=== PATIENT | female | born 1955 | race Caucasian/White ===

== ENCOUNTER 2018-06-23 14:13 | Emergency (ER) | payer BC ==
--- OUTSIDE RECORDS SUMMARY | 2018-06-23 14:19 | XMS REPORT | Continuity of Care Document ---
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 Melba Corrales MD Primary Care Physician Unavailable Payers Date Identification Numbers Payment Provider Subscriber Onset: 2018 Policy Number: [id number] [facility] Steffany Cruz Group Number: [id number] [address] Group Name: [id number] [place] [address] PayID: [id number] Effective: 2007 Policy Number: [id number] [facility] Steffany Cruz PayID: [id number] [address] [address] [place] [address] Advance Directives Description No Information Available Problems Active Problems Provider Date Chronic hepatitis C Angela Hsieh M.D. Onset: 12/08/2014 Refractory migraine without aura Angela Hsieh M.D. Onset: 12/08/2014 Tobacco user Angela Hsieh M.D. Onset: 12/08/2014 Wrist joint pain Melba Corrales MD Onset: 02/03/2015 Fibromyalgia Melba Corrales MD Onset: 02/03/2015 Sciatica Melba Corrales MD Onset: 05/03/2015 Hyperlipidemia Melba Corrales MD Onset: 04/14/2017 Shoulder joint pain Brennon Gooden M.D. Onset: 2017 Adhesive capsulitis of shoulder Brennon Gooden M.D. Onset: 2017 Acute upper respiratory infection, unspecified Melba Corrales MD Onset: 03/28 Eruption Melba Corrales MD Onset: 05/12/2017 Lesion of ulnar nerve Brennon Godoen M.D. Onset: 05/22/2017 Arthralgia of the upper arm Sandy Tapia MD Onset: 06/09/2017 Joint pain in right hand Sandy Tapia MD Onset: 06/09/2017 Joint pain in left hand Sandy Tapia MD Onset: 06/09/2017 Skin sensation disturbance Sandy Tapia MD Onset: 06/09/2017 Unspecified injury of muscle(s) and tendon(s) of Wendy Hung MD Onset: the rotator cuff of right shoulder, subsequent encounter Crushing injury of wrist Rowena Crouch PA Onset: 06/19/2018 Family History Date Family Member(s) Observation Comments Father Diabetes Father due to Diabetes () Father due to Heart Disease () Father due to Kidney Disease () Mother ALS Mother due to ALS () Social History Type Date Description Comments Sex Unknown Marital Status Patient is but has had a boyfriend for over 6 yrs Lives With Alone Diet Patient follows no dietary restrictions Occupation Currently Working [employer] [place] 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 Status Currently Working Hand Dominance Right-handed Tobacco Use Start: Unknown currently smokes 1/2 Pack Daily Tobacco Use Start: Unknown In process of trying to quit ETOH Use Denies alcohol use Tobacco Use Start: Unknown Patient is a current smoker, smokes every day Recreational Drug Use Former Drug User Tobacco Use Start: Unknown Pt is in the process of trying to quit Smoking Status Reviewed: 06/19/18 Pt is in the process of trying to quit Allergies, Adverse Reactions, Alerts Description No Known Drug Allergies Medications Active Medications SIG Qnty Indications Ordering Provider Date Vitamin D3 1 by mouth every 90caps Melba Corrales MD 06/16/2018 2000Unit day Capsules Baclofen 1 tab by mouth 60tabs Gagen, 03/23/2018 10mg Tablets three times a day Jessica MS, for neck, back BIOLOGICAL SCIENCE TECHNICIAN-C, CNM spasm Gabapentin 1 capsule three 90caps M25.519 Gagen, 03/23/2018 400mg times a day Jessica, MS, Capsules BIOLOGICAL SCIENCE TECHNICIAN-C, CNM Ibuprofen 1 tab once a day 30tabs Melba Corrales MD 04/30/2015 400mg Tablets as needed as for pain Restasis 1gtt. twice a day Unknown 0.05% Emulsion each eye Monat S3 Supplement 1 cap by mouth Unknown every day Capsules History Medications Vitamin D take one capsule 12caps F41.1 Gagen, 12/01/2017 - (Ergocalciferol) once a week MS Jessica, 06/16/2018 BIOLOGICAL SCIENCE TECHNICIAN-C, CNM [id number] Capsules Citalopram 1 tab by mouth 30tabs F32.1 Gagen, 10/31/2017 - Hydrobromide every day MS Jessica, 02/10/2018 10mg Tablets MICHAEL-LAVERN Walters Buspirone HCL take one twice a 60tabs F32.1 Gagen, 10/31/2017 - 7.5mg day MS Jessica, 02/10/2018 Tablets BIOLOGICAL SCIENCE TECHNICIAN-CLAVERN Baclofen 1 tab by mouth 60tabs Brennon Gooden, 2017 - 10mg Tablets three times a M.D. 10/13/2017 day spasm Sudafed Nasal 1 tab by mouth 30tabs Melba Corrales MD 03/28/2017 - Decongestant Maximum twice a day as 05/12/2017 Strength needed for 30mg Tablets congestion Amoxicillin/Clavulanat 1 tab by mouth 20tabs Melba Corrales MD 2017 - e Potassium q12hrs for 10 04/14/2017 875-125mg days Tablets Amoxicillin/Clavulanat 1 tab by mouth 14tabs Melba Corrales MD 2016 - e Potassium q12hrs for 7 Unknown 875-125mg days Tablets Tessalon Perles 1 tab by mouth 30caps J06.9 Melba Corrales MD 05/22/2016 - 100mg every 8 hours as 05/28/2016 Capsules needed Ventolin HFA 1-2 puffs every 8gm Melba oCrrales MD 05/22/2016 - 108(90Base) 4-6 hours as 11/20/2017 mcg/Act Aerosol needed for cough and shortness of breath [facility] Mucus Extended 1 tab by mouth 30tabs J06.9 Melba Corrales MD 2016 - Release twice a day 05/28/2016 600mg Tablets ER 12HR Azithromycin take 2 tabs on 6tabs Melba Corrales MD 05/22/2016 - 250mg day 1 and take 05/28/2016 Tablets one tab days 2-5 Fish Oil Burp-Less every day Melba Corrales MD 01/22/2016 - 1200mg 10/04/2016 Capsules Ventolin HFA 1-2 puffs every 8gm Melba Corrales MD 12/07/2015 - 108(90Base) 4-6 hours as 01/22/2016 mcg/Act Aerosol needed for cough and shortness of breath Anexsia Every 4 To 6 HRS 15tabs Unknown 04/30/2015 - 5-325mg Tablets 07/12/2015 Cyclobenzaprine HCL 3 times a day as 90tabs Melba Corrales MD 04/30/2015 - 10mg needed as needed 2017 Tablets muscle spasms Meloxicam 1 by mouth every 30tabs Brennon Gooden, 11/29/2014 - 15mg Tablets day c food M.D. 05/03/2015 [facility] Mucus Extended 1 tab by mouth 30tabs J06.9 Melba Corrales MD 2014 - Release twice a day 11/29/2014 600mg Tablets ER 12HR Ventolin HFA 1 puff every 6 1units J06.9 Melba Corrales MD 11/28/2014 - 108(90Base) hours as needed 07/12/2015 mcg/Act Aerosol Tessalon Perles 1 tab by mouth 30caps J06.9 Melba Corrales MD 11/28/2014 - 100mg every 8 hours as 11/29/2014 Capsules needed Ergocalciferol 1 tab by mouth 12caps F41.1 Melba Corrales MD 11/09/2014 - 62240Letc every week for 11/29/2014 Capsules 12 weeks No Active Medications Unknown 11/04/2014 - 11/04/2014 Gabapentin 2 tab by mouth 180caps M79.7 Melba Corrales MD 11/04/2014 - 100mg Capsules three times a 03/23/2018 day Lidoderm 1 patch apply to 30units M54.5 Melba Corrales MD 11/04/2014 - 5% Patches affected area 11/29/2014 daily as needed Fish Oil 1 by mouth every Unknown - 1000mg Capsules day 04/14/2017 Harvoni 1 by mouth every Unknown - 90-400mg Tablets day x 12 weeks 12/07/2015 Hydrocodone-Acetaminop Unknown - hen 05/03/2015 5-325mg Tablets Biotin Once Daily Unknown - 1000mcg Tablets 05/03/2015 Benzonatate Unknown - 150mg 02/03/2015 Capsules Guaifenesin 200 mg by mouth Unknown - 200mg Tablets every 6 hours as 02/03/2015 needed Vitamin D2 Unknown - 400Unit 05/03/2015 Tablets Biotin 1 by mouth every Unknown - 300mcg Tablets day 11/27/2014 Biotin 1 by mouth every Unknown - 5000mcg Tablets day 05/12/2017 Metronidazole Unknown - 500mg 11/03/2014 Medications Administered in Office Medication SIG Qnty Indications Ordering Provider Date Depomedrol 40mg/1cc Wendy Hung MD 04/07/2018 (methylprednisolone acetate) Injection Depomedrol 40mg/1cc Anthony Boston MD 11/07/2017 (methylprednisolone acetate) Injection Immunizations CPT Code Status Date Vaccine Lot # 33940 Given 11/18/2016 Influenza Virus Vaccine Quadrivalent Iiv4 [place] [id number] [place] [address] Given 10/04/2016 Tdap injection [id number] 19239 Given 01/22/2016 Pneumovax Injection [id number] 50055 Given 01/22/2016 Influenza Virus Vaccine Split Virus Use For [id number] Individual 3Yr Older [id number] Given 02/03/2015 Influenza Vaccine (Fluzone) Age 3 And Older [id number] Vital Signs Date Vital Result Comment 06/19/2018 9:42am BP Systolic 129 mmHg BP Diastolic 82 mmHg Body Temperature 96.0 F Heart Rate 95 /min Height 64 inches 5'4" Weight 101.00 lb BMI (Body Mass Index) 17.3 kg/m2 BSA (Body Surface Area) 1.46 m2 [place] body weight in kilograms 54 kg O2 % BldC Oximetry 98 % 06/16/2018 9:38am BP Systolic Sitting Left Arm 124 mmHg BP Diastolic Sitting Left Arm 60 mmHg BP Systolic Lying Down Resting Right Arm 124 mmHg left BP Diastolic Lying Down Resting Right Arm 60 mmHg left BP Systolic Sitting Resting Right Arm 118 mmHg left BP Diastolic Sitting Resting Right Arm 58 mmHg left BP Systolic Standing Resting Right Arm 112 mmHg left BP Diastolic Standing Resting Right Arm 58 mmHg left Body Temperature 96.8 F Heart Rate 69 /min 71-74 orhtostatic Respiratory Rate 18 /min Height 63 inches 5'3" Weight 102.00 lb BMI (Body Mass Index) 18.1 kg/m2 BSA (Body Surface Area) 1.45 m2 [place] body weight in kilograms 52 kg O2 % BldC Oximetry 98 % Ra 05/05/2018 2:20pm BP Systolic 128 mmHg BP Diastolic 83 mmHg Body Temperature 97.0 F Heart Rate 66 /min Height 63 inches 5'3" Weight 104.00 lb BMI (Body Mass Index) 18.4 kg/m2 BSA (Body Surface Area) 1.46 m2 [place] body weight in kilograms 52 kg O2 % BldC Oximetry 98 % room air Pain Level 5 04/21/2018 2:20pm BP Systolic 124 mmHg BP Diastolic 64 mmHg Body Temperature 95.0 F Heart Rate 65 /min Height 63 inches 5'3" Weight 103.00 lb BMI (Body Mass Index) 18.2 kg/m2 BSA (Body Surface Area) 1.46 m2 [place] body weight in kilograms 52 kg O2 % BldC Oximetry 99 % Pain Level 2 04/08/2018 9:41am BP Systolic Sitting Right Arm 110 mmHg BP Diastolic Sitting Right Arm 56 mmHg Body Temperature 95.9 F Heart Rate 82 /min Respiratory Rate 18 /min Height 63.5 inches 5'3.50" Weight 104.00 lb BMI (Body Mass Index) 18.1 kg/m2 BSA (Body Surface Area) 1.47 m2 [place] body weight in kilograms 53 kg O2 % BldC Oximetry 98 % Ra 04/07/2018 10:50am Body Temperature 97.4 F Heart Rate 86 /min Height 63.5 inches 5'3.50" Weight 104.38 lb BMI (Body Mass Index) 18.2 kg/m2 BSA (Body Surface Area) 1.48 m2 [place] body weight in kilograms 53 kg O2 % BldC Oximetry 96 % Pain Level 10 Daniel Arms 03/23/2018 10:20am BP Systolic 110 mmHg BP Diastolic 62 mmHg Body Temperature 96.7 F Heart Rate 74 /min Respiratory Rate 18 /min Height 63.5 inches 5'3.50" Weight 105.00 lb BMI (Body Mass Index) 18.3 kg/m2 BSA (Body Surface Area) 1.48 m2 [place] body weight in kilograms 53 kg O2 % BldC Oximetry 97 % 03/09/2018 12:55pm BP Systolic Sitting Right Arm 102 mmHg BP Diastolic Sitting Right Arm 68 mmHg Body Temperature 97.7 F Heart Rate 70 /min reg Respiratory Rate 18 /min Height 63.5 inches 5'3.50" Weight 106.00 lb BMI (Body Mass Index) 18.5 kg/m2 BSA (Body Surface Area) 1.49 m2 [place] body weight in kilograms 53 kg O2 % BldC Oximetry 98 % ra 02/10/2018 1:53pm BP Systolic Sitting Left Arm 115 mmHg BP Diastolic Sitting Left Arm 72 mmHg Body Temperature 97.6 F Heart Rate 62 /min Respiratory Rate 17 /min Height 63.5 inches 5'3.50" Weight 107.00 lb BMI (Body Mass Index) 18.7 kg/m2 BSA (Body Surface Area) 1.49 m2 [place] body weight in kilograms 53 kg O2 % BldC Oximetry 99 % 12/08/2017 2:43pm BP Systolic 104 mmHg BP Diastolic 64 mmHg Body Temperature 96.7 F Heart Rate 68 /min Respiratory Rate 18 /min Height 63.5 inches 5'3.50" Weight 110.12 lb BMI (Body Mass Index) 19.2 kg/m2 BSA (Body Surface Area) 1.51 m2 [place] body weight in kilograms 53 kg O2 % BldC Oximetry 98 % 11/27/2017 11:05am BP Systolic Sitting Right Arm 121 mmHg BP Diastolic Sitting Right Arm 73 mmHg Body Temperature 96.9 F Heart Rate 66 /min Respiratory Rate 20 /min Height 63.5 inches 5'3.50" Weight 111.12 lb BMI (Body Mass Index) 19.4 kg/m2 BSA (Body Surface Area) 1.52 m2 [place] body weight in kilograms 53 kg O2 % BldC Oximetry 98 % 11/20/2017 2:59pm BP Systolic Sitting Left Arm 128 mmHg BP Diastolic Sitting Left Arm 78 mmHg Body Temperature 98.7 F Heart Rate 75 /min Respiratory Rate 18 /min Height 63.5 inches 5'3.50" Weight 110.00 lb BMI (Body Mass Index) 19.2 kg/m2 BSA (Body Surface Area) 1.51 m2 [place] body weight in kilograms 53 kg O2 % BldC Oximetry 98 % 11/07/2017 10:08am BP Systolic Sitting Left Arm 121 mmHg BP Diastolic Sitting Left Arm 71 mmHg Body Temperature 97.4 F Heart Rate 70 /min Respiratory Rate 18 /min Height 63.5 inches 5'3.50" Weight 110.38 lb BMI (Body Mass Index) 19.2 kg/m2 BSA (Body Surface Area) 1.51 m2 [place] body weight in kilograms 53 kg O2 % BldC Oximetry 99 % 10/31/2017 2:06pm BP Systolic Sitting Left Arm 120 mmHg BP Diastolic Sitting Left Arm 68 mmHg Body Temperature 98.6 F Heart Rate 63 /min Respiratory Rate 18 /min Height 63.5 inches 5'3.50" Weight 110.00 lb BMI (Body Mass Index) 19.2 kg/m2 BSA (Body Surface Area) 1.51 m2 [place] body weight in kilograms 53 kg O2 % BldC Oximetry 99 % Ra 10/13/2017 9:32am BP Systolic 141 mmHg BP Diastolic 78 mmHg Body Temperature 96.7 F Heart Rate 74 /min Respiratory Rate 18 /min Height 63.5 inches 5'3.50" Weight 113.38 lb BMI (Body Mass Index) 19.8 kg/m2 BSA (Body Surface Area) 1.53 m2 [place] body weight in kilograms 53 kg O2 % BldC Oximetry 98 % 05/22/2017 9:05am BP Systolic Sitting Right Arm 135 mmHg BP Diastolic Sitting Right Arm 74 mmHg Body Temperature 97.1 F Heart Rate 82 /min Respiratory Rate 18 /min Height 63.5 inches 5'3.50" Weight 114.00 lb BMI (Body Mass Index) 19.9 kg/m2 BSA (Body Surface Area) 1.53 m2 [place] body weight in kilograms 53 kg 05/12/2017 2:39pm BP Systolic Sitting Left Arm 140 mmHg Pallavi 123/67 BP Diastolic Sitting Left Arm 74 mmHg Pallavi 123/67 Body Temperature 97.8 F Heart Rate 77 /min Height 63.5 inches 5'3.50" Weight 115.00 lb BMI (Body Mass Index) 20.0 kg/m2 BSA (Body Surface Area) 1.54 m2 [place] body weight in kilograms 53 kg 2017 9:28am BP Systolic Sitting Right Arm 124 mmHg BP Diastolic Sitting Right Arm 72 mmHg Body Temperature 97.6 F Heart Rate 69 /min Respiratory Rate 20 /min Height 63.5 inches 5'3.50" Weight 115.00 lb BMI (Body Mass Index) 20.0 kg/m2 BSA (Body Surface Area) 1.54 m2 [place] body weight in kilograms 53 kg 04/14/2017 9:15am BP Systolic Sitting Left Arm 127 mmHg BP Diastolic Sitting Left Arm 67 mmHg Body Temperature 98.0 F Heart Rate 78 /min Height 63.5 inches 5'3.50" Weight 117.00 lb BMI (Body Mass Index) 20.4 kg/m2 BSA (Body Surface Area) 1.55 m2 [place] body weight in kilograms 53 kg O2 % BldC Oximetry 99 % 03/28/2017 9:29am BP Systolic Sitting Right Arm 118 mmHg BP Diastolic Sitting Right Arm 74 mmHg Body Temperature 97.6 F Heart Rate 88 /min Respiratory Rate 20 /min Height 63.5 inches 5'3.50" Weight 116.00 lb BMI (Body Mass Index) 20.2 kg/m2 BSA (Body Surface Area) 1.54 m2 [place] body weight in kilograms 53 kg O2 % BldC Oximetry 98 % 11/18/2016 8:57am BP Systolic Sitting Right Arm 130 mmHg BP Diastolic Sitting Right Arm 67 mmHg Heart Rate 63 /min Respiratory Rate 12 /min Height 63.5 inches 5'3.50" Weight 120.00 lb BMI (Body Mass Index) 20.9 kg/m2 BSA (Body Surface Area) 1.57 m2 [place] body weight in kilograms 53 kg 11/07/2016 2:21pm BP Systolic Sitting Left Arm 119 mmHg BP Diastolic Sitting Left Arm 69 mmHg Body Temperature 98.1 F Heart Rate 70 /min Respiratory Rate 16 /min Height 63.5 inches 5'3.50" Weight 120.00 lb BMI (Body Mass Index) 20.9 kg/m2 BSA (Body Surface Area) 1.57 m2 [place] body weight in kilograms 53 kg O2 % BldC Oximetry 96 % 10/24/2016 12:49pm BP Systolic 125 mmHg BP Diastolic 67 mmHg Body Temperature 96.6 F Heart Rate 65 /min Respiratory Rate 14 /min Height 63.5 inches 5'3.50" Weight 120.50 lb BMI (Body Mass Index) 21.0 kg/m2 BSA (Body Surface Area) 1.57 m2 [place] body weight in kilograms 53 kg O2 % BldC Oximetry 99 % 10/04/2016 9:41am BP Systolic Sitting Left Arm 148 mmHg recheck 125/74 BP Diastolic Sitting Left Arm 77 mmHg recheck 125/74 Heart Rate 76 /min Respiratory Rate 16 /min Height 63.5 inches 5'3.50" Weight 122.00 lb BMI (Body Mass Index) 21.3 kg/m2 BSA (Body Surface Area) 1.58 m2 [place] body weight in kilograms 53 kg 05/28/2016 9:41am BP Systolic 110 mmHg BP Diastolic 68 mmHg Body Temperature 96.3 F Heart Rate 74 /min Respiratory Rate 20 /min Height 63.5 inches 5'3.50" Weight 113.00 lb BMI (Body Mass Index) 19.7 kg/m2 BSA (Body Surface Area) 1.53 m2 O2 % BldC Oximetry 95 % 05/22/2016 10:58am BP Systolic 117 mmHg BP Diastolic 69 mmHg Body Temperature 97.1 F Heart Rate 78 /min Respiratory Rate 20 /min Height 63.5 inches 5'3.50" Weight 112.00 lb BMI (Body Mass Index) 19.5 kg/m2 BSA (Body Surface Area) 1.52 m2 O2 % BldC Oximetry 97 % 01/22/2016 10:13am BP Systolic Sitting Right Arm 112 mmHg BP Diastolic Sitting Right Arm 70 mmHg Height 63.5 inches 5'3.50" Weight 112.12 lb BMI (Body Mass Index) 19.5 kg/m2 BSA (Body Surface Area) 1.52 m2 12/07/2015 1:08pm BP Systolic Sitting Right Arm 124 mmHg BP Diastolic Sitting Right Arm 70 mmHg Heart Rate 86 /min Height 63.5 inches 5'3.50" Weight 372.75 lb BMI (Body Mass Index) 65.0 kg/m2 BSA (Body Surface Area) 2.53 m2 O2 % BldC Oximetry 90 % 07/12/2015 10:45am BP Systolic 144 mmHg BP Diastolic 80 mmHg Heart Rate 82 /min Height 63.5 inches 5'3.50" Weight 103.00 lb BMI (Body Mass Index) 18.0 kg/m2 BSA (Body Surface Area) 1.47 m2 05/03/2015 9:53am BP Systolic 109 mmHg BP Diastolic 64 mmHg Heart Rate 70 /min Height 63.5 inches 5'3.50" Weight 107.00 lb BMI (Body Mass Index) 18.7 kg/m2 BSA (Body Surface Area) 1.49 m2 02/03/2015 9:30am BP Systolic Sitting Left Arm 118 mmHg BP Diastolic Sitting Left Arm 72 mmHg Height 63.5 inches 5'3.50" Weight 112.25 lb BMI (Body Mass Index) 19.6 kg/m2 BSA (Body Surface Area) 1.52 m2 12/08/2014 1:36pm BP Systolic 102 mmHg BP Diastolic 58 mmHg Body Temperature 97.3 F Heart Rate 65 /min Height 63.5 inches 5'3.50" Weight 117.00 lb BMI (Body Mass Index) 20.4 kg/m2 BSA (Body Surface Area) 1.55 m2 O2 % BldC Oximetry 94 % 11/29/2014 8:59am BP Systolic Sitting Right Arm 116 mmHg BP Diastolic Sitting Right Arm 73 mmHg Heart Rate 86 /min Height 63 inches 5'3" Weight 115.00 lb BMI (Body Mass Index) 20.4 kg/m2 BSA (Body Surface Area) 1.53 m2 11/28/2014 1:02pm BP Systolic 104 mmHg BP Diastolic 60 mmHg Body Temperature 98.1 F Height 64 inches 5'4" Weight 117.00 lb BMI (Body Mass Index) 20.1 kg/m2 BSA (Body Surface Area) 1.56 m2 11/04/2014 10:26am BP Systolic 104 mmHg BP Diastolic 58 mmHg Heart Rate 68 /min Respiratory Rate 18 /min Height 64 inches 5'4" Weight 120.00 lb BMI (Body Mass Index) 20.6 kg/m2 BSA (Body Surface Area) 1.57 m2 O2 % BldC Oximetry 96 % Ra 09/13/2009 2:02pm Heart Rate 80 /min Respiratory Rate 20 /min Height 64 inches 5'4" Weight 115.00 lb BMI (Body Mass Index) 19.7 kg/m2 Results Test Date Facility Test Result H/L Range Note LDL Cholesterol 05/04/2018 [facility] Cholesterol 202 mg/dL High <200 1, 2 Profile [address] [place] [address] [phone] Triglycerides 112 mg/dL <150 3 HDL Cholesterol 62 mg/dL >40 4 LDL-Cholesterol 118 mg/dL < 100 5 Reflex add FT3? Y Reflex add FT4? Y CBC W/Automated Diff 05/04/2018 [facility] White Blood 5.9 K/uL N 3.1-10.[address] [place] [address] [phone] Red Blood Count 4.92 M/uL N 3.90-5.40 Hemoglobin 14.9 gm/dL N 11.6-15.8 Hematocrit 45.8 % N 36.0-46.1 Mean Cell Volume 93.1 fl N 80.9-99.0 Mean Corpuscular HGB 30.3 pg N 25.9-32.7 Mean Corpuscular HGB Conc 32.5 g/dL N 30.8-34.3 Platelet Count 213 K/uL N 155-360 Red Cell Distri Width SD 44.3 fl N 36-47 Red Cell Distri Width %CV 13.3 % N 11.7-14.4 Mean Platelet Volume 11.6 fL N 8.9-12.4 Neut% 37.4 % Low 40.4-72.8 Lymph % 49.3 % High 20.0-42.0 [place] % 8.0 % N 4.3-13.2 Eo% 4.6 % N 0.0-6.6 Bas% 0.7 % N 0.0-1.1 Neut# 2.21 K/uL N 1.8-7.0 Lymph # 2.91 K/uL N 1.0-4.0 [place] # 0.47 K/uL N 0.3-0.9 Eos # 0.27 K/uL N 0.0-0.5 Baso # 0.04 K/uL N 0.0-0.1 Comprehensive Metabolic 05/04/2018 [facility] Glucose 91 mg/dL N 74-[address] [place] [address] [phone] BUN 9 mg/dL N 7-18 Creatinine 0.6 mg/dL N 0.6-1.3 Glom Filtration Rate, Estimate >60 mL/min >60 If >60 mL/min >60 6 BUN/Creat 15.0 ratio Sodium 140 mmol/L N 136-145 Potassium 4.8 mmol/L N 3.5-5.1 Chloride 105 mmol/L N 98-107 Carbon Dioxide 30 mmol/L N 21-32 Anion Gap 5 mEq/L Low 8-16 Calcium 9.1 mg/dL N 8.5-10.1 Total Protein 8.1 g/dL N 6.4-8.2 Albumin 3.5 g/dL N 3.4-5.0 Globulin 4.6 g/dL High 1.9-4.3 Alb/Glob 0.8 ratio Bilirubin,Total 0.8 mg/dL N 0.2-1.0 Sgot/Ast 35 U/L N 15-37 SGPT/Alt 13 U/L N 12-78 Alkaline Phosphatase 75 U/L N 45-117 Reflex add FT3? Y Reflex add FT4? Y Glycohemoglobin A1c 05/04/2018 [facility] Glycohemoglobin 5.3 % N 4.2-6.3 [address] [facility] (A1c) [place] [address] [phone] eAG 105 mg/dL TSH Reflex FT4 05/04/2018 [facility] Thyroid Stim 2.74 uIU/mL N 0.30-4.20 And/Or FT3 [address] [place] [place] [address] [phone] Reflex add FT3? Y Reflex add FT4? Y Laboratory test 04/04/2018 [facility] Sedimentation Rate 10 mm/hr N 0-30 8, [address] [place] [address] [phone] C-Reactive Protein,Quant < 2.9 mg/L <3.0 Serum globulin 03/02/2018 N2N/CCD Import Serum globulin 4.5 High 1.9-4.3 measurement by measurement by calculation calculation (mass/vo (mass/volume) Serum or plasma 03/02/2018 N2N/CCD Import Serum or plasma 37.7 30.0- 100.0 25-hydroxyvitamin D 25-hydroxyvitamin D measurement (m measurement (mass/volume) Serum or plasma 03/02/2018 N2N/CCD Import Serum or plasma 13 12-78 alanine alanine aminotransferase aminotransferase measureme measurement (enzymatic activity/volume) Serum or plasma 03/02/2018 N2N/CCD Import Serum or plasma 3.8 3.4-5.0 albumin measurement albumin measurement (mass/volume) (mass/volume) Serum or plasma 03/02/2018 N2N/CCD Import Serum or plasma 0.8 albumin/globulin albumin/globulin mass ratio mass ratio Serum or plasma 03/02/2018 N2N/CCD Import Serum or plasma 71 45-117 alkaline alkaline phosphatase phosphatase measurement ( measurement (enzymatic activity/volume) Serum or plasma 03/02/2018 N2N/CCD Import Serum or plasma 4 Low 8-16 anion gap anion gap Serum or plasma 03/02/2018 N2N/CCD Import Serum or plasma 13 Low 15-37 aspartate aspartate aminotransferase aminotransferase measure measurement (enzymatic activity/volume) Serum or plasma 03/02/2018 N2N/CCD Import Serum or plasma 9.5 8.5-10.1 calcium measurement calcium measurement (mass/volume) (mass/volume) Serum or plasma 03/02/2018 N2N/CCD Import Serum or plasma 105 98-107 chloride chloride measurement measurement Serum or plasma 03/02/2018 N2N/CCD Import Serum or plasma 0.6 0.6-1.3 creatinine creatinine measurement measurement (mass/volum (mass/volume) Serum or plasma 03/02/2018 N2N/CCD Import Serum or plasma 85 74-106 glucose measurement glucose measurement (mass/volume) (mass/volume) Serum or plasma 03/02/2018 N2N/CCD Import Serum or plasma 4.1 3.5-5.1 potassium potassium measurement measurement Serum or plasma 03/02/2018 N2N/CCD Import Serum or plasma 8.3 High 6.4- 8.2 protein measurement protein measurement (mass/volume) (mass/volume) Serum or plasma 03/02/2018 N2N/CCD Import Serum or plasma 0.9 0.2-1.0 total bilirubin total bilirubin measurement (mass/ measurement (mass/volume) Serum or plasma 03/02/2018 N2N/CCD Import Serum or plasma 8 7-18 urea nitrogen urea nitrogen measurement measurement (mass/vo (mass/volume) Serum or plasma 03/02/2018 N2N/CCD Import Serum or plasma 13.3 urea urea nitrogen/creatinine nitrogen/creatinine mass rati mass ratio Sodium SerPl-sCnc 03/02/2018 N2N/CCD Import Sodium SerPl-sCnc 140 136- 145 Absolute neutrophil 03/02/2018 N2N/CCD Import Absolute neutrophil 1.80 1.8-7.0 count count Laboratory test 03/02/2018 [facility] Vitamin 37.7 30.0-100.0 10, finding [address] D,25-Hydroxy ng/mL 11 [place] [address] [phone] Glycohemoglobin A1c 03/02/2018 [facility] Glycohemoglobin 5.7 % N 4.2-6.[address] (A1c) [place], [place] [id number] [phone] eAG 117 mg/dL Comprehensive Metabolic 03/02/2018 [facility] Glucose 85 mg/dL N 74-[address] [place], [place] [id number] [phone] BUN 8 mg/dL N 7-18 Creatinine 0.6 mg/dL N 0.6-1.3 Glom Filtration Rate, Estimate >60 mL/min >60 If >60 mL/min >60 13 BUN/Creat 13.3 ratio Sodium 140 mmol/L N 136-145 Potassium 4.1 mmol/L N 3.5-5.1 Chloride 105 mmol/L N 98-107 Carbon Dioxide 31 mmol/L N 21-32 Anion Gap 4 mEq/L Low 8-16 Calcium 9.5 mg/dL N 8.5-10.1 Total Protein 8.3 g/dL High 6.4-8.2 Albumin 3.8 g/dL N 3.4-5.0 Globulin 4.5 g/dL High 1.9-4.3 Alb/Glob 0.8 ratio Bilirubin,Total 0.9 mg/dL N 0.2-1.0 Sgot/Ast 13 U/L Low 15-37 14 SGPT/Alt 13 U/L N 12-78 Alkaline Phosphatase 71 U/L N 45-117 CBC W/Automated Diff 03/02/2018 [facility] White Blood 5.1 K/uL N 3.1-10.[address] [place] [address] [phone] Red Blood Count 4.82 M/uL N 3.90-5.40 Hemoglobin 14.9 gm/dL N 11.6-15.8 Hematocrit 44.9 % N 36.0-46.1 Mean Cell Volume 93.2 fl N 80.9-99.0 Mean Corpuscular HGB 30.9 pg N 25.9-32.7 Mean Corpuscular HGB Conc 33.2 g/dL N 30.8-34.3 Platelet Count 207 K/uL N 155-360 Red Cell Distri Width SD 42.8 fl N 36-47 Red Cell Distri Width %CV 12.8 % N 11.7-14.4 Mean Platelet Volume 10.5 fL N 8.9-12.4 Neut% 35.2 % Low 40.4-72.8 Lymph % 50.7 % High 20.0-42.0 [place] % 9.4 % N 4.3-13.2 Eo% 3.5 % N 0.0-6.6 Bas% 1.2 % High 0.0-1.1 Neut# 1.80 K/uL N 1.8-7.0 Lymph # 2.59 K/uL N 1.0-4.0 [place] # 0.48 K/uL N 0.3-0.9 Eos # 0.18 K/uL N 0.0-0.5 Baso # 0.06 K/uL N 0.0-0.1 Automated basophil 03/02/2018 N2N/CCD Import Automated basophil 1.2 High 0.0-1.1 % % Automated blood 03/02/2018 N2N/CCD Import Automated blood 0.06 0.0-0.1 basophil count basophil count (number/volume) (number/volume) Automated blood 03/02/2018 N2N/CCD Import Automated blood 0.18 0.0-0.5 eosinophil count eosinophil count Automated blood 03/02/2018 N2N/CCD Import Automated blood 5.1 3.1-10.7 leukocyte count leukocyte count (number/volume) (number/volume) Automated blood 03/02/2018 N2N/CCD Import Automated blood 2.59 1.0-4.0 lymphocyte count lymphocyte count (number/volume) (number/volume) Automated blood 03/02/2018 N2N/CCD Import Automated blood 50.7 High 20.0- 42.0 lymphocytes/100 lymphocytes/100 leukocytes leukocytes Automated blood 03/02/2018 N2N/CCD Import Automated blood 35.2 Low 40.4- 72.8 neutrophils/100 neutrophils/100 leukocytes leukocytes Automated blood 03/02/2018 N2N/CCD Import Automated blood 207 155-360 platelet count platelet count Automated blood 03/02/2018 N2N/CCD Import Automated blood 10.5 8.9-12.4 platelet mean platelet mean volume measurement volume measurement Automated 03/02/2018 N2N/CCD Import Automated 3.5 0.0-6.6 eosinophil % eosinophil % Automated 03/02/2018 N2N/CCD Import Automated 42.8 36-47 erythrocyte erythrocyte distribution width distribution width HgbA1c % 03/02/2018 N2N/CCD Import HgbA1c % 5.7 4.2-6.3 Hct VFr Bld Auto 03/02/2018 N2N/CCD Import Hct VFr Bld Auto 44.9 36.0- 46.1 Co2 SerPl-sCnc 03/02/2018 N2N/CCD Import Co2 SerPl-sCnc 31 21-32 Blood monocytes 03/02/2018 N2N/CCD Import Blood monocytes 0.48 0.3-0.9 automated count automated count (number/volume) (number/volume) Blood hemoglobin 03/02/2018 N2N/CCD Import Blood hemoglobin 14.9 11.6- 15.8 measurement measurement (mass/volume) (mass/volume) Blood estimated 03/02/2018 N2N/CCD Import Blood estimated 117 average glucose average glucose determination by e determination by estimation from glycated hemoglobin (mass/volume) Automated 03/02/2018 N2N/CCD Import Automated 12.8 11.7-14.4 erythrocyte erythrocyte distribution width distribution width ratio ratio Automated 03/02/2018 N2N/CCD Import Automated 30.9 25.9-32.7 erythrocyte mean erythrocyte mean corpuscular corpuscular hemoglobin hemoglobin (mass per erythrocyte) Automated 03/02/2018 N2N/CCD Import Automated 33.2 30.8-34.3 erythrocyte mean erythrocyte mean corpuscular corpuscular hemoglobin hemoglobin concentration measurement (mass/volume) Automated 03/02/2018 N2N/CCD Import Automated 93.2 80.9-99.0 erythrocyte mean erythrocyte mean corpuscular volume corpuscular volume (MCV (MCV) measurement Automated monocyte 03/02/2018 N2N/CCD Import Automated monocyte 9.4 4.3- 13.2 % % Blood erythrocytes 03/02/2018 N2N/CCD Import Blood erythrocytes 4.82 3.90-5.40 automated count automated count (number/volume) (number/volume) CBC W/Automated 11/21/2017 [facility] White Blood Count 6.7 K/uL N 3.1-10.7 15 Diff [address] [place] [address] [phone] Red Blood Count 5.04 M/uL N 3.90-5.40 Hemoglobin 15.7 gm/dL N 11.6-15.8 Hematocrit 46.9 % High 36.0-46.1 Mean Cell Volume 93.1 fl N 80.9-99.0 Mean Corpuscular HGB 31.2 pg N 25.9-32.7 Mean Corpuscular HGB Conc 33.5 g/dL N 30.8-34.3 Platelet Count 232 K/uL N 155-360 Red Cell Distri Width SD 44.4 fl N 3-47 Red Cell Distri Width %CV 13.4 % N 11.7-14.4 Mean Platelet Volume 9.9 fL N 8.9-12.4 Neut% 41.1 % N 40.4-72.8 Lymph % 48.7 % High 20.0-42.0 [place] % 8.0 % N 4.3-13.2 Eo% 1.8 % N 0.0-6.6 Bas% 0.4 % N 0.0-1.1 Neut# 2.75 K/uL N 1.8-7.0 Lymph # 3.27 K/uL N 1.0-4.0 [place] # 0.54 K/uL N 0.3-0.9 Eos # 0.12 K/uL N 0.0-0.5 Baso # 0.03 K/uL N 0.0-0.1 LDL Cholesterol 11/21/2017 [facility] Cholesterol 231 mg/dL High <200 16 Profile [address] [place] [address] [phone] Triglycerides 114 mg/dL <150 17 HDL Cholesterol 71 mg/dL >40 18 LDL-Cholesterol 137 mg/dL < 100 19 Comprehensive Metabolic 11/21/2017 [facility] Glucose 98 mg/dL N 74-106 Panel [address] [place] [address] [phone] BUN 8 mg/dL N 7-18 Creatinine 0.7 mg/dL N 0.6-1.3 Glom Filtration Rate, Estimate >60 mL/min >60 If >60 mL/min >60 20 BUN/Creat 11.4 ratio Sodium 143 mmol/L N 136-145 Potassium 3.9 mmol/L N 3.5-5.1 Chloride 105 mmol/L N 98-107 Carbon Dioxide 32 mmol/L N 21-32 Anion Gap 6 mEq/L Low 8-16 Calcium 9.2 mg/dL N 8.5-10.1 Total Protein 8.8 g/dL High 6.4-8.2 Albumin 4.0 g/dL N 3.4-5.0 Globulin 4.8 g/dL High 1.9-4.3 Alb/Glob 0.8 ratio Bilirubin,Total 0.8 mg/dL N 0.2-1.0 Sgot/Ast 19 U/L N 15-37 SGPT/Alt 15 U/L N 12-78 Alkaline Phosphatase 68 U/L N 45-117 Vitamin B12 And 11/21/2017 [facility] Vitamin B12 413 pg/mL N 193-986 Folate [address] [place] [address] [phone] Folic Acid 9.8 ng/mL N 3.1-17.5 Laboratory test 11/21/2017 [facility] Vitamin 14.7 Low 30.0-100.0 21 finding [address] [facility] D,25-Hydroxy ng/[place] [address] [phone] Comprehensive 10/06/2017 [facility] Glucose 97 mg/dL N 74-106 22 Metabolic Panel [address] [place] [address] [phone] BUN 5 mg/dL Low 7-18 Creatinine 0.5 mg/dL Low 0.6-1.3 Glom Filtration Rate, Estimate >60 mL/min >60 If >60 mL/min >60 23 BUN/Creat 10.0 ratio Sodium 143 mmol/L N 136-145 Potassium 4.6 mmol/L N 3.5-5.1 Chloride 108 mmol/L High 98-107 Carbon Dioxide 27 mmol/L N 21-32 Anion Gap 8 mEq/L N 8-16 Calcium 9.2 mg/dL N 8.5-10.1 Total Protein 7.9 g/dL N 6.4-8.2 Albumin 3.9 g/dL N 3.4-5.0 Globulin 4.0 g/dL N 1.9-4.3 Alb/Glob 1.0 ratio Bilirubin,Total 1.1 mg/dL High 0.2-1.0 Sgot/Ast 25 U/L N 15-37 SGPT/Alt 15 U/L N 12-78 Alkaline Phosphatase 60 U/L N 45-117 LDL Cholesterol 10/06/2017 [facility] Cholesterol 201 mg/dL High <200 24 Profile [address] [place], [place] [id number] [phone] Triglycerides 112 mg/dL <150 25 HDL Cholesterol 57 mg/dL >40 26 LDL-Cholesterol 122 mg/dL < 100 27 Alt SerPl-cCnc 10/06/2017 N2N/CCD Import Alt SerPl-cCnc 15 12-78 Albumin/Glob SerPl 10/06/2017 N2N/CCD Import Albumin/Glob SerPl 1.0 Anion Gap SerPl-sCnc 10/06/2017 N2N/CCD Import Anion Gap SerPl-sCnc 8 8- 16 Serum sodium 10/06/2017 N2N/CCD Import Serum sodium 143 136-145 measurement measurement Serum or plasma urea 10/06/2017 N2N/CCD Import Serum or plasma urea 10.0 nitrogen/creatinine nitrogen/creatinine mass rati mass ratio Serum or plasma urea 10/06/2017 N2N/CCD Import Serum or plasma urea 5 *L 7-18 nitrogen measurement nitrogen measurement (mass/vo (mass/volume) Serum or plasma 10/06/2017 N2N/CCD Import Serum or plasma 112 <150 triglyceride triglyceride measurement measurement (mass/vol (mass/volume) Serum or plasma 10/06/2017 N2N/CCD Import Serum or plasma 1.1 High 0.2- 1.0 total bilirubin total bilirubin measurement (mass/ measurement (mass/volume) Serum or plasma 10/06/2017 N2N/CCD Import Serum or plasma 7.9 6.4-8.2 protein measurement protein measurement (mass/volume) (mass/volume) Chloride SerPl-sCnc 10/06/2017 N2N/CCD Import Chloride SerPl-sCnc 108 High 98-107 Globulin Ser 10/06/2017 N2N/CCD Import Globulin Ser 4.0 1.9-4.3 Calc-mCnc Calc-mCnc Potassium SerPl-sCnc 10/06/2017 N2N/CCD Import Potassium SerPl-sCnc 4.6 3.5-5.1 Serum carbon dioxide 10/06/2017 N2N/CCD Import Serum carbon dioxide 27 21-32 measurement measurement Serum or plasma 10/06/2017 N2N/CCD Import Serum or plasma 3.9 3.4-5.0 albumin measurement albumin measurement (mass/volume) (mass/volume) Serum or plasma 10/06/2017 N2N/CCD Import Serum or plasma 60 45-117 alkaline phosphatase alkaline phosphatase measurement ( measurement (enzymatic activity/volume) Serum or plasma 10/06/2017 N2N/CCD Import Serum or plasma 25 15-37 aspartate aspartate aminotransferase aminotransferase measure measurement (enzymatic activity/volume) Serum or plasma 10/06/2017 N2N/CCD Import Serum or plasma 97 74-106 glucose measurement glucose measurement (mass/volume) (mass/volume) Serum or plasma 10/06/2017 N2N/CCD Import Serum or plasma 0.5 Low 0.6- 1.3 creatinine creatinine measurement measurement (mass/volum (mass/volume) Serum or plasma 10/06/2017 N2N/CCD Import Serum or plasma 201 High <200 cholesterol cholesterol measurement measurement (mass/volu (mass/volume) Serum or plasma 10/06/2017 N2N/CCD Import Serum or plasma 122 < 100 cholesterol in LDL cholesterol in LDL measurement by measurement by calculation (mass/volume) Serum or plasma 10/06/2017 N2N/CCD Import Serum or plasma 57 >40 cholesterol in HDL cholesterol in HDL measurement (ma measurement (mass/volume) Serum or plasma 10/06/2017 N2N/CCD Import Serum or plasma 9.2 8.5-10.1 calcium measurement calcium measurement (mass/volume) (mass/volume) Comprehensive 04/08/2017 [facility] Glucose 98 N 74-106 28 Metabolic Panel [address] mg/[place] [address] [phone] BUN 7 mg/dL N 7-18 Creatinine 0.7 mg/dL N 0.6-1.3 Glom Filtration Rate, Estimate >60 mL/min >60 If >60 mL/min >60 29 BUN/Creat 10.0 ratio Sodium 146 mmol/L High 136-145 Potassium 4.0 mmol/L N 3.5-5.1 Chloride 110 mmol/L High 98-107 Carbon Dioxide 30 mmol/L N 21-32 Anion Gap 6 mEq/L Low 8-16 Calcium 9.1 mg/dL N 8.5-10.1 Total Protein 7.6 g/dL N 6.4-8.2 Albumin 3.6 g/dL N 3.4-5.0 Globulin 4.0 g/dL N 1.9-4.3 Alb/Glob 0.9 ratio Bilirubin,Total 0.5 mg/dL N 0.2-1.0 Sgot/Ast 15 U/L N 15-37 SGPT/Alt 15 U/L N 12-78 Alkaline Phosphatase 70 U/L N 45-117 LDL Cholesterol Profile 04/08/2017 [facility] Cholesterol 199 mg/dL <[address] [place], [place] [id number] [phone] Triglycerides 142 mg/dL <150 31 HDL Cholesterol 63 mg/dL >40 32 LDL-Cholesterol 108 mg/dL < 100 33 CBS W/Automated Diff 04/08/2017 [facility] White Blood 7.0 K/uL N 3.1-10.[address] Count [place], [place] [id number] [phone] Red Blood Count 4.72 M/uL N 3.90-5.40 Hemoglobin 14.7 gm/dL N 11.6-15.8 Hematocrit 44.3 % N 36.0-46.1 Mean Cell Volume 93.9 fl N 80.9-99.0 Mean Corpuscular HGB 31.1 pg N 25.9-32.7 Mean Corpuscular HGB Conc 33.2 g/dL N 30.8-34.3 Platelet Count 245 K/uL N 155-360 Red Cell Distri Width SD 45.0 fl N 3-47 Red Cell Distri Width %CV 13.6 % N 11.7-14.4 Mean Platelet Volume 11.1 fL N 8.9-12.4 Neut% 36.6 % Low 40.4-72.8 Lymph % 49.7 % High 20.0-42.0 [place] % 11.0 % N 4.3-13.2 Eo% 2.1 % N 0.0-6.6 Bas% 0.6 % N 0.0-1.1 Neut# 2.57 K/uL N 1.8-7.0 Lymph # 3.49 K/uL N 1.0-4.0 [place] # 0.77 K/uL N 0.3-0.9 Eos # 0.15 K/uL N 0.0-0.5 Baso # 0.04 K/uL N 0.0-0.1 Comprehensive Metabolic 09/27/2016 [facility] Glucose 85 mg/dL N 74-106 [address] [place] [address] [phone] BUN 4 mg/dL Low 7-18 Creatinine 0.6 mg/dL N 0.6-1.3 Glom Filtration Rate, Estimate >60 mL/min >60 If >60 mL/min >60 35 BUN/Creat 6.6 ratio Sodium 139 mmol/L N 136-145 Potassium 3.8 mmol/L N 3.5-5.1 Chloride 103 mmol/L N 98-107 Carbon Dioxide 30 mmol/L N 21-32 Anion Gap 6 mEq/L Low 8-16 Calcium 9.1 mg/dL N 8.5-10.1 Total Protein 7.6 g/dL N 6.4-8.2 Albumin 3.5 g/dL N 3.4-5.0 Globulin 4.1 g/dL N 1.9-4.3 Alb/Glob 0.9 ratio Bilirubin,Total 0.5 mg/dL N 0.2-1.0 Sgot/Ast 20 U/L N 15-37 SGPT/Alt 11 U/L Low 12-78 36 Alkaline Phosphatase 79 U/L N 45-117 CBS W/Automated Diff 09/27/2016 [facility] White Blood 6.6 K/uL N 3.1-10.[address] [place] [address] [phone] Red Blood Count 4.50 M/uL N 3.90-5.40 Hemoglobin 14.0 gm/dL N 11.6-15.8 Hematocrit 41.5 % N 36.0-46.1 Mean Cell Volume 92.2 fl N 80.9-99.0 Mean Corpuscular HGB 31.1 pg N 25.9-32.7 Mean Corpuscular HGB Conc 33.7 g/dL N 30.8-34.3 Platelet Count 258 K/uL N 150-400 Red Cell Distri Width SD 46.7 fl N 3-47 Red Cell Distri Width %CV 14.0 % N 11.7-14.4 Mean Platelet Volume 10.5 fL N 8.9-12.4 Neut% 29.0 % Low 40.4-72.8 Lymph % 55.8 % High 20.0-42.0 [place] % 11.9 % N 4.3-13.2 Eo% 2.4 % N 0.0-6.6 Bas% 0.9 % N 0.0-1.1 Neut# 1.91 K/uL N 1.8-7.0 Lymph # 3.67 K/uL N 1.0-4.0 [place] # 0.78 K/uL N 0.3-0.9 Eos # 0.16 K/uL N 0.0-0.5 Baso # 0.06 K/uL N 0.0-0.1 LDL Cholesterol 09/27/2016 [facility] Cholesterol 223 mg/dL High <200 37 Profile [address] [place] [address] [phone] Triglycerides 133 mg/dL <150 38 HDL Cholesterol 55 mg/dL >40 39 LDL-Cholesterol 141 mg/dL < 100 40 Comprehensive Metabolic 02/14/2016 [facility] Glucose 79 mg/dL N 74-106 41 Panel [address] [place] [address] [phone] BUN 7 mg/dL N 7-18 Creatinine 0.7 mg/dL N 0.6-1.3 Glom Filtration Rate, Estimate >60 mL/min N >60 If >60 mL/min N >60 42 BUN/Creat 10.0 ratio N Sodium 139 mmol/L N 136-145 Potassium 3.8 mmol/L N 3.5-5.1 Chloride 104 mmol/L N 98-107 Carbon Dioxide 29 mmol/L N 21-32 Anion Gap 6 mEq/L Low 8-16 Calcium 9.0 mg/dL N 8.5-10.1 Total Protein 8.7 g/dL High 6.4-8.2 Albumin 3.9 g/dL N 3.4-5.0 Globulin 4.8 g/dL High 1.9-4.3 Alb/Glob 0.8 ratio N Bilirubin,Total 1.1 mg/dL High 0.2-1.0 Sgot/Ast 18 U/L N 15-37 SGPT/Alt 13 U/L N 12-78 Alkaline Phosphatase 76 U/L N 45-117 CBC W/Automated Diff 02/14/2016 [facility] White Blood 6.6 K/uL N 3.1-10.[address] [place] [address] [phone] Red Blood Count 4.81 M/uL N 3.90-5.40 Hemoglobin 15.0 gm/dL N 11.6-15.8 Hematocrit 44.8 % N 36.0-46.1 Mean Cell Volume 93.1 fl N 80.9-99.0 Mean Corpuscular HGB 31.2 pg N 25.9-32.7 Mean Corpuscular HGB Conc 33.5 g/dL N 30.8-34.3 Platelet Count 222 K/uL N 155-360 Red Cell Distri Width SD 43.6 fl N 3-47 Red Cell Distri Width %CV 13.0 % N 11.7-14.4 Mean Platelet Volume 10.3 fL N 8.9-12.4 Neut% 44.2 % N 40.4-72.8 Lymph % 44.0 % N 17.0-46.1 [place] % 9.2 % N 4.3-13.2 Eo% 1.7 % N 0.0-6.6 Bas% 0.9 % N 0.0-1.1 Neut# 2.92 K/uL N 1.8-7.0 Lymph # 2.91 K/uL N 1.8-7.0 [place] # 0.61 K/uL N 0.3-0.9 Eos # 0.11 K/uL N 0.0-0.5 Baso # 0.06 K/uL N 0.0-0.1 LDL Cholesterol 02/14/2016 [facility] Cholesterol 216 mg/dL High <200 [address] [place] [address] [phone] Triglycerides 128 mg/dL N <150 44 HDL Cholesterol 62 mg/dL N >40 45 LDL-Cholesterol 128 mg/dL N < 100 46 Laboratory test 08/22/2015 N2N/CCD Import Alanine Aminotransferase 14 12 -78 finding (Alt/SGPT) Albumin/Globulin Ratio 0.7 Mean Corpuscular Hemoglobin 31.0 25.9-32.7 Mean Corpuscular Hemoglobin Concent 33.8 30.8-34.3 Mean Corpuscular Volume 91.7 80.9-99.0 RDW Coefficient of Variation 12.9 11.7-14.4 Total Bilirubin 0.6 0.2-1.0 Direct Bilirubin 08/22/2015 N2N/CCD Import Direct Bilirubin 0.1 0.0-0.2 Liver Function 08/22/2015 [facility] Total Protein 8.2 g/dL 6.4-8.2 Tests [address] [place] [address] [phone] Albumin 3.4 g/dL 3.4-5.0 Globulin 4.8 g/dL High 1.9-4.3 Alb/Glob 0.7 ratio Bilirubin,Total 0.6 mg/dL 0.2-1.0 Bilirubin,Direct 0.1 mg/dL 0.0-0.2 Bilirubin,Indirect 0.5 mg/dL 0.0-0.9 Sgot/Ast 17 U/L 15-37 SGPT/Alt 14 U/L 12-78 Alkaline Phosphatase 70 U/L 45-117 HCV Rna By PCR 08/22/2015 [facility] Hepatitis C See Note IU/mL . 47 (Quant) [address] [place] [address] [phone] Test Info See Note 48 CBC 08/22/2015 [facility] White Blood Count 8.0 K/uL 3.1-10.7 [address] [place] [address] [phone] Red Blood Count 4.58 M/uL 3.90-5.40 Hemoglobin 14.2 gm/dL 11.6-15.8 Hematocrit 42.0 % 36.0-46.1 Mean Cell Volume 91.7 fl 80.9-99.0 Mean Corpuscular HGB 31.0 pg 25.9-32.7 Mean Corpuscular HGB Conc 33.8 g/dL 30.8-34.3 Platelet Count 239 K/uL 155-360 Red Cell Distri Width %CV 12.9 % 11.7-14.4 Mean Platelet Volume 9.6 fL 8.9-12.4 Hepatitis C Rna 08/22/2015 N2N/CCD Import Hepatitis C Rna HCV Not . (PCR) IUs/ml (PCR) IUs/ml Detected Reference Lab Test 08/22/2015 N2N/CCD Import Reference Lab Test See Note 49 Comments Comments Laboratory test 05/19/2015 [facility] Gastric See Note [address] Biopsy/[place] [address] [phone] Laboratory test 03/22/2015 N2N/CCD Import Urine Amphetamines Negative finding Screen Urine Barbiturates Screen Negative Urine Benzodiazepines Screen Negative Urine Cannabinoids Screen Negative Urine Cocaine Screen Negative Urine Drug Screen Information * Urine Methadone Screen Negative Urine Opiates Screen Negative Laboratory test 02/06/2015 N2N/CCD Import Alanine Aminotransferase 24 12 -78 finding (Alt/SGPT) Albumin 3.5 3.4-5.0 Albumin/Globulin Ratio 0.9 Alkaline Phosphatase 62 45-117 Aspartate Amino Transf (Ast/Sgot) 31 15-37 Direct Bilirubin 0.2 0.0-0.2 Globulin 4.1 1.9-4.3 Hematocrit 41.2 36.0-46.1 Hemoglobin 14.2 11.6-15.8 Hepatitis B Surface Antibody Nonreactive Nonreactive Indirect Bilirubin 0.3 0.0-0.9 Inr International Normalized Ratio 1.0 0.9-1.1 Mean Corpuscular Hemoglobin 31.8 25.9-32.7 Mean Corpuscular Hemoglobin Concent 34.5 High 30.8-34.3 Mean Corpuscular Volume 92.2 80.9-99.0 Mean Platelet Volume 10.4 8.9-12.4 Platelet Count 184 155-360 Prothrombin Time 13.0 12.1-14.9 RDW Coefficient of Variation 13.2 11.7-14.4 Red Blood Count 4.47 3.90-5.40 Total Bilirubin 0.5 0.2-1.0 Total Protein 7.6 6.4-8.2 White Blood Count 4.9 3.1-10.7 Laboratory test 02/06/2015 N2N/CCD Import Alanine Aminotransferase 19 0- 40 finding (Alt/SGPT) Peacf-[id number] 420 High 110-276 Apolipoprotein A-1 150 116-209 Gamma Glutamyl Transpeptidase 21 0-60 HCV Liver Fibrosis Comment See Note 51 HCV Liver Fibrosis Limitations See Note 52 Haptoglobin 135 34-200 Hepatitis A Antibody Total Positive High Negative Hepatitis C Genotype 1a . Hepatitis C Genotype Comment See Note 53 Hepatitis C Rna (PCR) IUs/ml 045682 . Hepatitis C Rna (PCR) log IUs/ml 5.751 . Liver Fibrosis Score 0.43 High 0.00-0.21 Liver Necroinflammatory Score See Note 54 N/A See Note 55 Reference Lab Test Comments See Note 56 Total Bilirubin 0.4 0.0-1.2 Tumor Marker Alpha Fetoprotein 1.6 0.0-8.3 LDL Cholesterol 11/07/2014 [facility] Cholesterol 208 mg/dL < 200 57 Profile [address] [place], [place] [id number] [phone] Triglycerides 96 mg/dL < 150 58 HDL Cholesterol 61 mg/dL > 40 59 LDL-Cholesterol 128 mg/dL < 100 60 Laboratory test 11/07/2014 [facility] Thyroid Stim 2.78 uIU/mL 0.36-3.74 finding [address] [facility] [place] [address] [phone] Vitamin D,25-Hydroxy 14.4 ng/mL Low 30.0-100.0 61 HCV Rna By PCR (Quant) 11/07/2014 [facility] Hepatitis C 302810 IU/mL . [address] [place] [address] [phone] HCV log10 5.659 . 62 Test Info See Note 63 Glycohemoglobin A1c 11/07/2014 [facility] Glycohemoglobin 5.1 % 4.2-6.3 64 [address] [facility] (A1c) [place] [address] [phone] eAG 100 mg/dL Comprehensive Metabolic 11/07/2014 [facility] Glucose 92 mg/dL 74-106 Panel [address] [place] [address] [phone] BUN 6 mg/dL Low 7-18 Creatinine 0.7 mg/dL 0.6-1.3 Glom Filtration Rate, Estimate >60 mL/min >60 If >60 mL/min >60 65 BUN/Creat 8.5 ratio Sodium 139 mmol/L 136-145 Potassium 3.9 mmol/L 3.5-5.1 Chloride 104 mmol/L 98-107 Carbon Dioxide 29 mmol/L 21-32 Anion Gap 6 mEq/L Low 8-16 Calcium 9.6 mg/dL 8.5-10.1 Total Protein 8.9 g/dL High 6.4-8.2 Albumin 4.0 g/dL 3.4-5.0 Globulin 4.9 g/dL High 1.9-4.3 Alb/Glob 0.8 ratio Bilirubin,Total 0.7 mg/dL 0.2-1.0 Sgot/Ast 27 U/L 15-37 SGPT/Alt 24 U/L 12-78 Alkaline Phosphatase 73 U/L 45-117 CBC W/Automated Diff 11/07/2014 [facility] White Blood 6.5 K/uL 3.1-10.[address] [place] [address] [phone] Red Blood Count 5.05 M/uL 3.90-5.40 Hemoglobin 15.7 gm/dL 11.6-15.8 Hematocrit 46.7 % High 36.0-46.1 Mean Cell Volume 92.5 fl 80.9-99.0 Mean Corpuscular HGB 31.1 pg 25.9-32.7 Mean Corpuscular HGB Conc 33.6 g/dL 30.8-34.3 Platelet Count 242 K/uL 155-360 Red Cell Distri Width SD 43.2 fl 3-47 Red Cell Distri Width %CV 13.0 % 11.7-14.4 Mean Platelet Volume 10.3 fL 8.9-12.4 Neut% 38.0 % Low 40.4-72.8 Lymph % 48.6 % High 17.0-46.1 [place] % 9.7 % 4.3-13.2 Eo% 2.6 % 0.0-6.6 Bas% 1.1 % 0.0-1.1 Neut# 2.48 K/uL 1.0-7.0 Lymph # 3.17 K/uL 1.8-7.0 [place] # 0.63 K/uL 0.3-0.9 Eos # 0.17 K/uL 0.0-0.5 Baso # 0.07 K/uL 0.0-0.1 1 Z12.31 Z12.39 E78.5 I49.9 N95.1 2 Reference Guidelines*: Desirable: ........... < 200 mg/dL Borderline High: ..... 200-239 mg/dL High: ................ >=240 mg/dL * The National Cholesterol Education Program (NCEP) 3 Reference Guidelines*: Normal: ............. < 150 mg/dL Borderline High: .... 150-199 mg/dL High: ............... 200-499 mg/dL Very High: .......... > 500 mg/dL * Source: National Cholesterol Education Program (NCEP) 4 Reference Guidelines*: Low HDL: ..... < 40 mg/dL Normal: ..... 40-60 mg/dL Desirable: ... > 60 mg/dL *The National Cholesterol Education Program(NCEP) 5 Reference Guidelines*: Optimal:........... <100 mg/dL Near Optimal....... 100-129 mg/dL Borderline High.... 130-159 mg/dL High............... 160-189 mg/dL Very High.......... >=190 mg/dL * Source: National Cholesterol Education Program (NCEP) 6 Note: Persistent reduction for 3 months or more in an eGFR <60 mL/min/1.73 m2 defines CKD. Patients with eGFR values >/=60 mL/min/1.73 m2 may also have CKD if evidence of persistent proteinuria is present. The original MDRD equation for estimated GFR is not valid for patients less than 18 years of age. Additional information may be found at www.kdoqi.org. 7 Elevated levels of HbA1c suggest the need for more aggressive treatment of glycemia. The [place] Diabetes Association recommends that a primary goal of therapy should be a HbA1c of <7% and that physicians should re-evaluate the treatment regimen in patients with HbA1c values consistently >8%. 8 M54.5 9 Method: Sediplast Modified Westergren 10 E78.5 11 Vitamin D deficiency has been defined by the [place] [employer] and an Endocrine Society practice guideline as a level of serum 25-OH vitamin D less than 20 ng/mL (1,2). The Endocrine Society went on to further define vitamin D insufficiency as a level between 21 and 29 ng/mL (2). 1. IOM ([place] [employer]). 2010. Dietary reference intakes for calcium and D. [place]: The National Academies Press. 2. Rossy MF, May YA, Luana MELCHOR, et al. Evaluation, treatment, and prevention of vitamin D deficiency: an Endocrine Society clinical practice guideline. JCEM. 2010; 96(7):1911-30. Performed at: RN - [facility] [address] [id number] Forest Technician: Miriam Leigh MD, Phone: [phone] 12 Elevated levels of HbA1c suggest the need for more aggressive treatment of glycemia. The [place] Diabetes Association recommends that a primary goal of therapy should be a HbA1c of <7% and that physicians should re-evaluate the treatment regimen in patients with HbA1c values consistently >8%. 13 Note: Persistent reduction for 3 months or more in an eGFR <60 mL/min/1.73 m2 defines CKD. Patients with eGFR values >/=60 mL/min/1.73 m2 may also have CKD if evidence of persistent proteinuria is present. The original MDRD equation for estimated GFR is not valid for patients less than 18 years of age. Additional information may be found at www.kdoqi.org. 14 Values below the stated reference ranges of AST and ALT can be seen in normal populations. Clinical correlation is suggested. 15 F32.1 16 Reference Guidelines*: Desirable: ........... < 200 mg/dL Borderline High: ..... 200-239 mg/dL High: ................ >=240 mg/dL * The National Cholesterol Education Program (NCEP) 17 Reference Guidelines*: Normal: ............. < 150 mg/dL Borderline High: .... 150-199 mg/dL High: ............... 200-499 mg/dL Very High: .......... > 500 mg/dL * Source: National Cholesterol Education Program (NCEP) 18 Reference Guidelines*: Low HDL: ..... < 40 mg/dL Normal: ..... 40-60 mg/dL Desirable: ... > 60 mg/dL *The National Cholesterol Education Program(NCEP) 19 Reference Guidelines*: Optimal:........... <100 mg/dL Near Optimal....... 100-129 mg/dL Borderline High.... 130-159 mg/dL High............... 160-189 mg/dL Very High.......... >=190 mg/dL * Source: National Cholesterol Education Program (NCEP) 20 Note: Persistent reduction for 3 months or more in an eGFR <60 mL/min/1.73 m2 defines CKD. Patients with eGFR values >/=60 mL/min/1.73 m2 may also have CKD if evidence of persistent proteinuria is present. The original MDRD equation for estimated GFR is not valid for patients less than 18 years of age. Additional information may be found at www.kdoqi.org. 21 Vitamin D deficiency has been defined by the [place] [employer] and an Endocrine Society practice guideline as a level of serum 25-OH vitamin D less than 20 ng/mL (1,2). The Endocrine Society went on to further define vitamin D insufficiency as a level between 21 and 29 ng/mL (2). 1. IOM ([place] [employer]). 2010. Dietary reference intakes for calcium and D. [place]: The National Academies Press. 2. Rossy MF, May NC, Chito-Ej MELCHOR, et al. Evaluation, treatment, and prevention of vitamin D deficiency: an Endocrine Society clinical practice guideline. JCEM. 2010; 96(7):1911-30. Performed at: RN - [facility] [address] [id number] Forest Technician: Miriam Leigh MD, Phone: [phone] 22 e78.5 23 Note: Persistent reduction for 3 months or more in an eGFR <60 mL/min/1.73 m2 defines CKD. Patients with eGFR values >/=60 mL/min/1.73 m2 may also have CKD if evidence of persistent proteinuria is present. The original MDRD equation for estimated GFR is not valid for patients less than 18 years of age. Additional information may be found at www.kdoqi.org. 24 Reference Guidelines*: Desirable: ........... < 200 mg/dL Borderline High: ..... 200-239 mg/dL High: ................ >=240 mg/dL * The National Cholesterol Education Program (NCEP) 25 Reference Guidelines*: Normal: ............. < 150 mg/dL Borderline High: .... 150-199 mg/dL High: ............... 200-499 mg/dL Very High: .......... > 500 mg/dL * Source: National Cholesterol Education Program (NCEP) 26 Reference Guidelines*: Low HDL: ..... < 40 mg/dL Normal: ..... 40-60 mg/dL Desirable: ... > 60 mg/dL *The National Cholesterol Education Program(NCEP) 27 Reference Guidelines*: Optimal:........... <100 mg/dL Near Optimal....... 100-129 mg/dL Borderline High.... 130-159 mg/dL High............... 160-189 mg/dL Very High.......... >=190 mg/dL * Source: National Cholesterol Education Program (NCEP) 28 E78.5,M79.7,B18.2 29 Note: Persistent reduction for 3 months or more in an eGFR <60 mL/min/1.73 m2 defines CKD. Patients with eGFR values >/=60 mL/min/1.73 m2 may also have CKD if evidence of persistent proteinuria is present. The original MDRD equation for estimated GFR is not valid for patients less than 18 years of age. Additional information may be found at www.kdoqi.org. 30 Reference Guidelines*: Desirable: ........... < 200 mg/dL Borderline High: ..... 200-239 mg/dL High: ................ >=240 mg/dL * The National Cholesterol Education Program (NCEP) 31 Reference Guidelines*: Normal: ............. < 150 mg/dL Borderline High: .... 150-199 mg/dL High: ............... 200-499 mg/dL Very High: .......... > 500 mg/dL * Source: National Cholesterol Education Program (NCEP) 32 Reference Guidelines*: Low HDL: ..... < 40 mg/dL Normal: ..... 40-60 mg/dL Desirable: ... > 60 mg/dL *The National Cholesterol Education Program(NCEP) 33 Reference Guidelines*: Optimal:........... <100 mg/dL Near Optimal....... 100-129 mg/dL Borderline High.... 130-159 mg/dL High............... 160-189 mg/dL Very High.......... >=190 mg/dL * Source: National Cholesterol Education Program (NCEP) 34 B18.2 M79.7 E78.2 35 Note: Persistent reduction for 3 months or more in an eGFR <60 mL/min/1.73 m2 defines CKD. Patients with eGFR values >/=60 mL/min/1.73 m2 may also have CKD if evidence of persistent proteinuria is present. The original MDRD equation for estimated GFR is not valid for patients less than 18 years of age. Additional information may be found at www.kdoqi.org. 36 Values below the stated reference ranges of AST and ALT can be seen in normal populations. Clinical correlation is suggested. 37 Reference Guidelines*: Desirable: ........... < 200 mg/dL Borderline High: ..... 200-239 mg/dL High: ................ >=240 mg/dL * The National Cholesterol Education Program (NCEP) 38 Reference Guidelines*: Normal: ............. < 150 mg/dL Borderline High: .... 150-199 mg/dL High: ............... 200-499 mg/dL Very High: .......... > 500 mg/dL * Source: National Cholesterol Education Program (NCEP) 39 Reference Guidelines*: Low HDL: ..... < 40 mg/dL Normal: ..... 40-60 mg/dL Desirable: ... > 60 mg/dL *The National Cholesterol Education Program(NCEP) 40 Reference Guidelines*: Optimal:........... <100 mg/dL Near Optimal....... 100-129 mg/dL Borderline High.... 130-159 mg/dL High............... 160-189 mg/dL Very High.......... >=190 mg/dL * Source: National Cholesterol Education Program (NCEP) 41 Z12.31 B18.2 F17.210 42 Note: Persistent reduction for 3 months or more in an eGFR <60 mL/min/1.73 m2 defines CKD. Patients with eGFR values >/=60 mL/min/1.73 m2 may also have CKD if evidence of persistent proteinuria is present. The original MDRD equation for estimated GFR is not valid for patients less than 18 years of age. Additional information may be found at www.kdoqi.org. 43 Reference Guidelines*: Desirable: ........... < 200 mg/dL Borderline High: ..... 200-239 mg/dL High: ................ >=240 mg/dL * The National Cholesterol Education Program (NCEP) 44 Reference Guidelines*: Normal: ............. < 150 mg/dL Borderline High: .... 150-199 mg/dL High: ............... 200-499 mg/dL Very High: .......... > 500 mg/dL * Source: National Cholesterol Education Program (NCEP) 45 Reference Guidelines*: Low HDL: ..... < 40 mg/dL Normal: ..... 40-60 mg/dL Desirable: ... > 60 mg/dL *The National Cholesterol Education Program(NCEP) 46 Reference Guidelines*: Optimal:........... <100 mg/dL Near Optimal....... 100-129 mg/dL Borderline High.... 130-159 mg/dL High............... 160-189 mg/dL Very High.......... >=190 mg/dL * Source: National Cholesterol Education Program (NCEP) 47 HCV Not Detected 48 The quantitative range of this assay is 15 IU/mL to 100 million IU/mL. Performed at: [facility] [id number] Forest Technician: Miriam Leigh MD, Phone: [phone] The quantitative range of this assay is 15 Iu/mL to 100 million Iu/mL. Performed at: [facility] [employer] [id number] Forest Technician: Miriam Leigh MD, Phone: [phone] OPERATION/PROCEDURE Colonoscopy, upper endoscopy. DIAGNOSIS: PART 1: "DUODENUM, BIOPSY": - BENIGN SMALL INTESTINAL MUCOSA WITH NO SIGNIFICANT PATHOLOGIC ABNORMALITIES. - NO EVIDENCE OF VILLOUS BLUNTING OR INCREASED INTRAEPITHELIAL LYMPHOCYTES. PART 2: "STOMACH, BIOPSY": - BODY-TYPE GASTRIC MUCOSA WITH NO SIGNIFICANT PATHOLOGIC ABNORMALITIES. /clf [id number] GROSS Received in formalin in two properly labeled containers with the patient's name and accession number. Part one is designated, "DUODENAL BIOPSY". The specimen consists of multiple pieces of owens, soft rubbery tissue measuring 0.7 x 0.5 x 0.3 cm. in aggregate. Submitted entirely, one cassette. Part two is designated, "STOMACH BIOPSY". The specimen consists of multiple pieces of owens, soft rubbery tissue measuring 0.6 x 0.4 x 0.3 cm. in aggregate. Submitted entirely, one cassette. CC/clf PRE OPERATIVE DIAGNOSIS Screening, epigastric pain. REVIEW CODE CODE: I Signed Electronically signed Lani SHERMAN MD [phone] 51 This test was developed and its performance characteristics determined by [facility]. It has not been cleared or approved by the Food and Drug Administration. The Fda has determined that such clearance or approval is not necessary. For questions regarding this report please contact customer service -[phone]. 52 The negative predictive value of a Fibrotest score <0.31 (absence of clinically significant fibrosis) was 85% when compared to liver biopsy in 1,270 HCV infected patients with a 38% prevalence of significant liver fibrosis (F2, 3 or 4). The positive predictive value of a Fibro-test score >0.48 (F2, 3, 4) was 61% in that same patient cohort. HCV FibroSURE is not recommended in patients with Gilbert Disease, acute hemolysis (e.g. HCV ribavirin therapy mediated hemolysis) acute hepa-titis of the liver, extra- hepatic cholestasis, insufficiency patients. Any of these clinical situations may lead to inaccurate quantitative predictions of fibrosis and necroinflammatory activity in the liver. 53 This test was developed and its performance characteristics determined by [facility]. It has not been cleared or approved by the U.S. Food and Drug Administration. The Fda has determined that such clearance or approval is not necessary. This test is used for clinical purposes. It should not be regarded as investigational or for research. 54 <0.17=Grade A0 - No Activity 0.17 - 0.29=Grade A0 - A1 0.29 - 0.36=Grade A1 - Minimal activity 0.36 - 0.52=Grade A1 - A2 0.52 - 0.60=Grade A2 - Moderate activity 0.60 - 0.62=Grade A2 - A3 >0.62=Grade A3 - Severe activity 55 Quantitative results of 6 biochemical tests are analyzed using a computational algorithm to provide a quantitative surrogate marker (0.0-1.0) for liver fibrosis (Metavir F0- F4) and for necroinflammatory activity (Metavir A0-A3). 56 The quantitative range of the assay is 15 Iu/mL to 100 million Iu/mL using Elbert(R) TaqMan(R) HCV test, v 2.0. The limit of detection (Lod) and lower limit of quantification (Lloq) for this assay is 15 Iu/mL. Results less than the quantitative range of the assay will be reported as "HCV Rna detected, less than 15 Iu/mL". Performed at: [facility] [address] [place] [id number] Forest Technician: Saurabh Mcneill MD, Phone: [phone] Performed at: [facility] [id number] Forest Technician: Miriam Leigh MD, Phone: [phone] 57 Reference Guidelines*: Desirable: ........... < 200 mg/dL Borderline High: ..... 200-239 mg/dL High: ................ >=240 mg/dL * The National Cholesterol Education Program (NCEP) 58 Reference Guidelines*: Normal: ............. < 150 mg/dL Borderline High: .... 150-199 mg/dL High: ............... 200-499 mg/dL Very High: .......... > 500 mg/dL * Source: National Cholesterol Education Program (NCEP) 59 Reference Guidelines*: Low HDL: ..... < 40 mg/dL Normal: ..... 40-60 mg/dL Desirable: ... > 60 mg/dL *The National Cholesterol Education Program(NCEP) 60 Reference Guidelines*: Optimal:........... <100 mg/dL Near Optimal....... 100-129 mg/dL Borderline High.... 130-159 mg/dL High............... 160-189 mg/dL Very High.......... >=190 mg/dL * Source: National Cholesterol Education Program (NCEP) 61 Vitamin D deficiency has been defined by the [place] [employer] and an Endocrine Society practice guideline as a level of serum 25-OH vitamin D less than 20 ng/mL (1,2). The Endocrine Society went on to further define vitamin D insufficiency as a level between 21 and 29 ng/mL (2). 1. IOM ([place] [employer]). 2010. Dietary reference intakes for calcium and D. [place]: The National Academies Press. 2. Rossy MF, May YA, Luana MELCHOR, et al. Evaluation, treatment, and prevention of vitamin D deficiency: an Endocrine Society clinical practice guideline. JCEM. 2010; 96(7):1911-30. Performed at: [address] [id number] Forest Technician: Miriam Leigh MD, Phone: [phone] 62 INFCE Result Units: log10 IU/mL 63 The quantitative range of the assay is 15 IU/mL to 100 million IU/mL using ELBERT(R) TaqMan(R) HCV test, v 2.0. The limit of detection (LOD) and lower limit of quantification (LLOQ) for this assay is 15 IU/mL. Results less than the quantitative range of the assay will be reported as "HCV RNA detected, less than 15 IU/mL". Performed at: [address] [id number] Forest Technician: Miriam Leigh MD, Phone: [phone] 64 Elevated levels of HbA1c suggest the need for more aggressive treatment of glycemia. The [place] Diabetes Association recommends that a primary goal of therapy should be a HbA1c of <7% and that physicians should re-evaluate the treatment regimen in patients with HbA1c values consistently >8%. 65 Note: Persistent reduction for 3 months or more in an eGFR <60 mL/min/1.73 m2 defines CKD. Patients with eGFR values >/=60 mL/min/1.73 m2 may also have CKD if evidence of persistent proteinuria is present. The original MDRD equation for estimated GFR is not valid for patients less than 18 years of age. Additional information may be found at www.kdoqi.org. Procedures Date Code Description Status 05/04/2018 [id number] Mammogram Completed 04/07/2018 34857 Radiology, Forearm: Two Views Completed 04/07/2018 04026 Radiology, Forearm: Two Views Completed 04/07/2018 89602 Radiology, Elbow: Two Views Completed 04/07/2018 95668 Radiology, Elbow: Two Views Completed 04/07/2018 47955 Asp./Injection major joint Completed 03/19/2018 01268 Echocardiogram Complete Completed 03/09/2018 01783 EKG-Tracing And Report Completed 02/24/2018 [id number] Bone Mineral Density Test Completed 11/07/2017 Asp./Injection major joint Completed 10/31/2017 38076 Brief Emotional/Behav Assessment W/ Scoring Doc Per Completed Standard Inst 10/13/2017 50437 EKG-Tracing And Report Completed 06/09/2017 96225 Nerve Conduction 3-4 Studies Completed 06/09/2017 07835 Needle Electromyography Complete, Five Or More Muscles Completed Studied 2017 97354 Radiology, Shoulder: Two Views (Sso) Completed 04/22/201767749 Asp./Injection major joint Completed 10/24/2016 70748 Remove Impact Cerumen Irrigati Completed 10/24/2016 67027 Remove Impacted Cerumen Completed 05/28/2016 64761 Pressurized/Non-Pressurized Inhalation Treatment,Acute Completed Obstructio 05/22/2016 66261 Pressurized/Non-Pressurized Inhalation Treatment,Acute Completed Obstructio 12/07/2015 10165 Pressurized/Non-Pressurized Inhalation Treatment,Acute Completed Obstructio 07/12/2015 79919 EKG-Tracing And Report Completed 04/25/2015 [id number] Colonoscopy Completed 11/29/2014 65357 Radiology, Hand: Minimum Three Views Completed 11/29/2014 37037 Radiology, Hand: Minimum Three Views Completed 11/29/2014 20548 Radiology, Wrist Complete Completed 11/29/2014 43346 Radiology, Wrist Complete Completed 11/16/2014 [id number] Mammogram Completed Encounters Type Date Location Provider Dx Diagnosis Office Visit 06/19/2018 Orthopaedic Office Rowena Crouch M79.632 Pain in left 9:45a PA forearm S67.32xA Crushing injury of left wrist, initial encounter Office Visit 05/05/2018 2:15p Orthopaedic Abhilash S46.091S Inj musc/tend Office MD Wendy the rotator cuff of right shoulder, sequela M75.41 Impingement syndrome of right shoulder M19.011 Primary osteoarthritis, right shoulder F17.210 Nicotine dependence, cigarettes, uncomplicated Office Visit 05/05/2018 Viktor Hung M79.632 Pain in left 2:00p Office MD Wendy forearm Office Visit 04/21/2018 Orthopaedic Hung, M79.632 Pain in left 2:15p Office MD Wendy forearm Office Visit 04/08/2018 [facility] [place] M54.2 Cervicalgia 9:30a Office MS Lopez FNP-C, LAVERN M25.511 Pain in right shoulder M54.5 Low back pain F41.1 Generalized anxiety disorder E78.5 Hyperlipidemia, unspecified Office Visit 04/07/2018 11:00a Viktor Hung M75.41 Impingement Office MD Wendy syndrome of right shoulder M79.602 Pain in left arm M19.011 Primary osteoarthritis, right shoulder M79.602 Pain in left arm S46.091S Inj musc/tend the rotator cuff of right shoulder, sequela S50.12xA Contusion of left forearm, initial encounter S50.12xA Contusion of left forearm, initial encounter Y99.0 Civilian activity done for income or pay Y99.0 Civilian activity done for income or pay Office Visit 03/23/2018 10:30a Primary Care Jessica Duncan M54.2 Cervicalgia Office ZEKE MCALLISTER, LAVERN M25.519 Pain in unspecified shoulder F41.1 Generalized anxiety disorder I49.9 Cardiac arrhythmia, unspecified F17.210 Nicotine dependence, cigarettes, uncomplicated M54.5 Low back pain Office Visit 03/09/2018 1:00p Primary Care Jessica Duncan, F41.1 Generalized Office ZEKE MCALLISTER CNM anxiety disorder E78.5 Hyperlipidemia, unspecified N95.1 Menopausal and female climacteric states E55.9 Vitamin D deficiency, unspecified I49.9 Cardiac arrhythmia, unspecified F17.210 Nicotine dependence, cigarettes, uncomplicated Z12.31 Encntr screen mammogram for malignant neoplasm of breast Office Visit 02/10/2018 2:00p Viktor Hung M75.41 Impingement Office MD Wendy syndrome of right shoulder M19.011 Primary osteoarthritis, right shoulder S46.091S Inj musc/tend the rotator cuff of right shoulder, sequela F17.210 Nicotine dependence, cigarettes, uncomplicated M75.121 Complete rotatr-cuff tear/ruptr of r shoulder, not trauma Office Visit 12/08/2017 2:45p Primary Care Jessica Duncan, Z71.6 Tobacco abuse Office MS, BIOLOGICAL SCIENCE TECHNICIAN-C, CNM counseling F41.1 Generalized anxiety disorder M75.41 Impingement syndrome of right shoulder M19.011 Primary osteoarthritis, right shoulder S46.091S Inj musc/tend the rotator cuff of right shoulder, sequela E78.5 Hyperlipidemia, unspecified E55.9 Vitamin D deficiency, unspecified Office Visit 11/27/2017 11:00a Viktor Hung M75.41 Impingement Office MD Wendy syndrome of right shoulder S46.091S Inj musc/tend the rotator cuff of right shoulder, sequela M19.011 Primary osteoarthritis, right shoulder F17.210 Nicotine dependence, cigarettes, uncomplicated Office Visit 11/20/2017 3:00p Viktor Hung S46.001D Unsp inj Office MD Wendy musc/tend the rotator cuff of r shoulder, subs X58.xxxD Exposure to other specified factors, subsequent encounter Office Visit 11/07/2017 10:15a Orthopaedic Office Anthony Boston, M79.621 Pain in right MD upper arm Office Visit 10/31/2017 2:00p [facility] [place], F32.1 Major depressive Office Jessica, disorder, single MS, BIOLOGICAL SCIENCE TECHNICIAN-C, episode, CNM moderate M25.511 Pain in right shoulder Z71.6 Tobacco abuse counseling Office Visit 10/13/2017 [facility] [place], E78.5 Hyperlipidemia, 9:30a Office Jessica, MS, unspecified BIOLOGICAL SCIENCE TECHNICIAN-C, CNM F41.1 Generalized anxiety disorder M79.7 Fibromyalgia R07.9 Chest pain, unspecified Z71.6 Tobacco abuse counseling Z72.6 Gambling and betting Office Visit 05/22/2017 9:15a Orthopaedic Office Giacomo G56.20 Lesion of ulnar Maki Willett nerve, unspecified upper limb Office Visit 05/12/2017 2:40p Primary Care Antoni R21 Rash and other Office MD Melba nonspecific skin eruption Office Visit 2017 9:15a Orthopaedic Office Giacomo M25.511 Pain in right Maki Willett shoulder M75.01 Adhesive capsulitis of right shoulder Office Visit 04/14/2017 9:20a Primary Care Melba Corrales M25.511 Pain in right Office MD shoulder M79.7 Fibromyalgia E78.5 Hyperlipidemia, unspecified M54.31 Sciatica, right side Office Visit 03/28/2017 1:20p Primary Care Melba Corrales, J06.9 Acute upper Office MD respiratory infection, unspecified Office Visit 11/18/2016 9:00a Primary Care Melba Corrales, M25.511 Pain in right Office MD shoulder Z23 Encounter for immunization Office Visit 11/07/2016 2:20p Primary Care Melba Corrales, J01.90 Acute sinusitis, Office MD unspecified M25.511 Pain in right shoulder Office Visit 10/24/2016 1:00p Primary Care Melba Corrales, H61.23 Impacted cerumen, Office MD bilateral Office Visit 10/04/2016 9:40a Primary Care Melba Corrales B18.2 Chronic viral Office MD hepatitis C M79.7 Fibromyalgia Z23 Encounter for immunization E78.5 Hyperlipidemia, unspecified Office Visit 05/28/2016 9:40a Primary Care Melba Corrales, J20.8 Acute bronchitis Office MD due to other specified organisms B18.2 Chronic viral hepatitis C M79.7 Fibromyalgia Office Visit 05/22/2016 11:00a Primary Care Melba Corrales, J20.8 Acute bronchitis Office MD due to other specified organisms Office Visit 01/22/2016 10:00a Primary Care Melba Corrales, B18.2 Chronic viral Office hepatitis C M79.7 Fibromyalgia F17.210 Nicotine dependence, cigarettes, uncomplicated Z23 Encounter for immunization Z71.6 Tobacco abuse counseling Office Visit 12/07/2015 1:00p Primary Care Melba Corrales, J20.8 Acute bronchitis Office MD due to other specified organisms M62.830 Muscle spasm of back Office Visit 07/12/2015 10:40a Primary Care Melba Corrales, B18.2 Chronic viral Office hepatitis C M54.31 Sciatica, right side B37.2 Candidiasis of skin and nail M79.7 Fibromyalgia Office Visit 05/03/2015 9:40a Primary Care Melba Corrales, B18.2 Chronic viral Office hepatitis C F17.210 Nicotine dependence, cigarettes, uncomplicated M54.31 Sciatica, right side B37.2 Candidiasis of skin and nail Z71.6 Tobacco abuse counseling Office Visit 02/03/2015 9:20a Primary Care Melba Corrales, B18.2 Chronic viral Office hepatitis C G43.019 Migraine w/o aura, intractable, without status migrainosus M25.532 Pain in left wrist M79.7 Fibromyalgia F17.210 Nicotine dependence, cigarettes, uncomplicated Z71.6 Tobacco abuse counseling Z23 Encounter for immunization Office Visit 12/08/2014 1:30p Primary Care Angela Hsieh B18.2 Chronic viral Office MZuleyka hepatitis C B18.2 Chronic viral hepatitis C G43.019 Migraine w/o aura, intractable, without status migrainosus G43.019 Migraine w/o aura, intractable, without status migrainosus F17.210 Nicotine dependence, cigarettes, uncomplicated F17.210 Nicotine dependence, cigarettes, uncomplicated Office Visit 11/29/2014 8:45a Orthopaedic Office Irwin Katherine M79.642 Pain in S., RPAC left hand M25.532 Pain in left wrist 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, left wrist Office Visit 11/28/2014 1:00p Primary Care Melba Corrales B18.2 Chronic viral Office hepatitis C J06.9 Acute upper respiratory infection, unspecified Office Visit 11/04/2014 10:00a Primary Care Melba Corrales, Z00.00 Encntr for Office general adult medical exam w/o abnormal findings M79.7 Fibromyalgia M65.30 Trigger finger, unspecified finger M25.551 Pain in right hip M54.5 Low back pain B18.2 Chronic viral hepatitis C Z72.0 Tobacco use Office Visit 09/13/2009 1:45p Surgical Office Robby Marshall, 454.8 Varicose Veins Of The Lower Extremities, W/Other Complicatn Plan of Treatment Future Appointment(s):07/01/2018 10:00 am - Wendy Hung MD at Orthopaedic Caksmv9508/21/2018 10:00 am - Ayo Parnell M.D., [facility] at Cardiology Lnkvll3906/30/2018 9:30 am - Jessica Duncan MS, ZEKE, LAVERN at Primary Care Kutmpt1609/15/2018 9:30 am - Jessica Duncan MS, ZEKE, LAVERN at Primary Care Office
--- OUTSIDE RECORDS SUMMARY | 2018-06-23 14:19 | XMS REPORT | Continuity of Care Document ---
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 Steffany Cruz PayID: [id number] [address] [address] PATRICK Patrick [address] Advance Directives Description No Information Available Problems [...] Onset: 05/12/2017 Lesion of ulnar nerve Brennon Gooden M.D. 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 Status Currently [...] of trying to quit Smoking Status Reviewed: 06/16/18 Pt is in the process of trying to quit Allergies, Adverse Reactions, Alerts Description No Known Drug Allergies Medications Active Medications SIG Qnty Indications Ordering Provider Date Vitamin D3 1 by mouth every 90caps Melba Corrales MD 06/16/2018 2000Unit day Capsules Baclofen 1 tab by mouth 60tabs Gagen, 03/23/2018 10mg Tablets three times a day MS Jessica, for neck, back REFLESHER-C, CNM spasm Gabapentin 1 capsule three 90caps M25.519 Gagen, 03/23/2018 400mg times a day MS Jessica, Capsules REFLESHER-C, CNM Ibuprofen 1 tab once a day 30tabs Melba Corrales MD 04/30/2015 400mg Tablets as needed as for pain Restasis 1gtt. twice a day Unknown 0.05% Emulsion each eye Monat S3 Supplement 1 cap by mouth Unknown every day Capsules History Medications Vitamin D take one capsule 12caps F41.1 Gagen, 12/01/2017 - (Ergocalciferol) once a week MS Jessica, 06/16/2018 REFLESHER-C, CNM [id number] Capsules Citalopram 1 tab by mouth 30tabs F32.1 Gagen, 10/31/2017 - Hydrobromide every day MS Jessica, 02/10/2018 10mg Tablets REFLESHER-C, CNM Buspirone HCL take one twice a 60tabs F32.1 Gagen, 10/31/2017 - 7.5mg day MS Jessica, 02/10/2018 Tablets REFLESHER-C, CNM Baclofen 1 tab by mouth 60tabs Brennon [...] 1-2 puffs every 8gm Melba Corrales MD 05/22/2016 - 108(90Base) 4-6 hours as [...] Meloxicam 1 by mouth every 30tabs Brennon Gooden 11/29/2014 - 15mg Tablets day c food [...] 12caps F41.1 Melba Corrales MD 11/09/2014 - [id number] every week for 11/29/2014 Capsules 12 weeks [...] 04/07/2018 (methylprednisolone acetate) Injection Depomedrol 40mg/1cc Anthony Bosotn MD 11/07/2017 (methylprednisolone acetate) Injection Immunizations CPT Code Status Date Vaccine Lot # [id number] Given 11/18/2016 Influenza Virus Vaccine Quadrivalent Iiv4 [place] [id number] [place] [address] Given 10/04/2016 Tdap injection [id number] 85551 Given 01/22/2016 Pneumovax Injection [id number] 49154 Given 01/22/2016 Influenza Virus Vaccine Split Virus Use For [id number] Individual 3Yr Older [id number] Given 02/03/2015 Influenza Vaccine (Fluzone) Age 3 And Older [id number] Vital Signs Date Vital Result Comment 06/16/2018 9:38am BP Systolic Sitting Left Arm [...] kg/m2 BSA (Body Surface Area) 1.45 m2 [place] body weight in kilograms 52 kg O2 % BldC Oximetry 98 % Ra 05/05/2018 2:20pm BP Systolic 128 mmHg BP Diastolic 83 mmHg Body Temperature 97.0 F Heart Rate 66 /min Height 63 inches 5'3" Weight 104.00 lb BMI (Body Mass Index) 18.4 kg/m2 BSA (Body Surface Area) 1.46 m2 [place] body weight in kilograms 52 kg O2 % BldC Oximetry 98 % room air Pain Level 5 04/21/2018 2:20pm BP Systolic 124 mmHg BP Diastolic 64 mmHg Body Temperature 95.0 F Heart Rate 65 /min Height 63 inches 5'3" Weight 103.00 lb BMI (Body Mass Index) 18.2 kg/m2 BSA (Body Surface Area) 1.46 m2 [place] body weight in kilograms 52 kg O2 % BldC Oximetry 99 % Pain Level 2 04/08/2018 9:41am BP Systolic Sitting Right Arm 110 mmHg BP Diastolic Sitting Right Arm 56 mmHg Body Temperature 95.9 F Heart Rate 82 /min Respiratory Rate 18 /min Height 63.5 inches 5'3.50" Weight 104.00 lb BMI (Body Mass Index) 18.1 kg/m2 BSA (Body Surface Area) 1.47 m2 [place] body weight in kilograms 53 kg O2 % BldC Oximetry 98 % Ra 04/07/2018 10:50am Body Temperature 97.4 F Heart Rate 86 /min Height 63.5 inches 5'3.50" Weight 104.38 lb BMI (Body Mass Index) 18.2 kg/m2 BSA (Body Surface Area) 1.48 m2 [place] body weight in kilograms 53 kg O2 % BldC Oximetry 96 % Pain Level 10 Daniel Arms 03/23/2018 10:20am BP Systolic 110 mmHg BP Diastolic 62 mmHg Body Temperature 96.7 F Heart Rate 74 /min Respiratory Rate 18 /min Height 63.5 inches 5'3.50" Weight 105.00 lb BMI (Body Mass Index) 18.3 kg/m2 BSA (Body Surface Area) 1.48 m2 [place] body weight in kilograms 53 kg O2 % BldC Oximetry 97 % 03/09/2018 12:55pm BP Systolic Sitting Right Arm 102 mmHg BP Diastolic Sitting Right Arm 68 mmHg Body Temperature 97.7 F Heart Rate 70 /min reg Respiratory Rate 18 /min Height 63.5 inches 5'3.50" Weight 106.00 lb BMI (Body Mass Index) 18.5 kg/m2 BSA (Body Surface Area) 1.49 m2 [place] body weight in kilograms 53 kg O2 % BldC Oximetry 98 % ra 02/10/2018 1:53pm BP Systolic Sitting Left Arm 115 mmHg BP Diastolic Sitting Left Arm 72 mmHg Body Temperature 97.6 F Heart Rate 62 /min Respiratory Rate 17 /min Height 63.5 inches 5'3.50" Weight 107.00 lb BMI (Body Mass Index) 18.7 kg/m2 BSA (Body Surface Area) 1.49 m2 [place] body weight in kilograms 53 kg O2 % BldC Oximetry 99 % 12/08/2017 2:43pm BP Systolic 104 mmHg BP Diastolic 64 mmHg Body Temperature 96.7 F Heart Rate 68 /min Respiratory Rate 18 /min Height 63.5 inches 5'3.50" Weight 110.12 lb BMI (Body Mass Index) 19.2 kg/m2 BSA (Body Surface Area) 1.51 m2 [place] body weight in kilograms 53 kg O2 % BldC Oximetry 98 % 11/27/2017 11:05am BP Systolic Sitting Right Arm 121 mmHg BP Diastolic Sitting Right Arm 73 mmHg Body Temperature 96.9 F Heart Rate 66 /min Respiratory Rate 20 /min Height 63.5 inches 5'3.50" Weight 111.12 lb BMI (Body Mass Index) 19.4 kg/m2 BSA (Body Surface Area) 1.52 m2 [place] body weight in kilograms 53 kg O2 % BldC Oximetry 98 % 11/20/2017 2:59pm BP Systolic Sitting Left Arm 128 mmHg BP Diastolic Sitting Left Arm 78 mmHg Body Temperature 98.7 F Heart Rate 75 /min Respiratory Rate 18 /min Height 63.5 inches 5'3.50" Weight 110.00 lb BMI (Body Mass Index) 19.2 kg/m2 BSA (Body Surface Area) 1.51 m2 [place] body weight in kilograms 53 kg O2 % BldC Oximetry 98 % 11/07/2017 10:08am BP Systolic Sitting Left Arm 121 mmHg BP Diastolic Sitting Left Arm 71 mmHg Body Temperature 97.4 F Heart Rate 70 /min Respiratory Rate 18 /min Height 63.5 inches 5'3.50" Weight 110.38 lb BMI (Body Mass Index) 19.2 kg/m2 BSA (Body Surface Area) 1.51 m2 [place] body weight in kilograms 53 kg O2 % BldC Oximetry 99 % 10/31/2017 2:06pm BP Systolic Sitting Left Arm 120 mmHg BP Diastolic Sitting Left Arm 68 mmHg Body Temperature 98.6 F Heart Rate 63 /min Respiratory Rate 18 /min Height 63.5 inches 5'3.50" Weight 110.00 lb BMI (Body Mass Index) 19.2 kg/m2 BSA (Body Surface Area) 1.51 m2 [place] body weight in kilograms 53 kg O2 % BldC Oximetry 99 % Ra 10/13/2017 9:32am BP Systolic 141 mmHg BP Diastolic 78 mmHg Body Temperature 96.7 F Heart Rate 74 /min Respiratory Rate 18 /min Height 63.5 inches 5'3.50" Weight 113.38 lb BMI (Body Mass Index) 19.8 kg/m2 BSA (Body Surface Area) 1.53 m2 [place] body weight in kilograms 53 kg O2 % BldC Oximetry 98 % 05/22/2017 9:05am BP Systolic Sitting Right Arm 135 mmHg BP Diastolic Sitting Right Arm 74 mmHg Body Temperature 97.1 F Heart Rate 82 /min Respiratory Rate 18 /min Height 63.5 inches 5'3.50" Weight 114.00 lb BMI (Body Mass Index) 19.9 kg/m2 BSA (Body Surface Area) 1.53 m2 [place] body weight in kilograms 53 kg 05/12/2017 2:39pm BP Systolic Sitting Left Arm 140 mmHg Pallavi 123/67 BP Diastolic Sitting Left Arm 74 mmHg Pallavi 123/67 Body Temperature 97.8 F Heart Rate 77 /min Height 63.5 inches 5'3.50" Weight 115.00 lb BMI (Body Mass Index) 20.0 kg/m2 BSA (Body Surface Area) 1.54 m2 [place] body weight in kilograms 53 kg 2017 9:28am BP Systolic Sitting Right Arm 124 mmHg BP Diastolic Sitting Right Arm 72 mmHg Body Temperature 97.6 F Heart Rate 69 /min Respiratory Rate 20 /min Height 63.5 inches 5'3.50" Weight 115.00 lb BMI (Body Mass Index) 20.0 kg/m2 BSA (Body Surface Area) 1.54 m2 [place] body weight in kilograms 53 kg 04/14/2017 9:15am BP Systolic Sitting Left Arm 127 mmHg BP Diastolic Sitting Left Arm 67 mmHg Body Temperature 98.0 F Heart Rate 78 /min Height 63.5 inches 5'3.50" Weight 117.00 lb BMI (Body Mass Index) 20.4 kg/m2 BSA (Body Surface Area) 1.55 m2 [place] body weight in kilograms 53 kg O2 % BldC Oximetry 99 % 03/28/2017 9:29am BP Systolic Sitting Right Arm 118 mmHg BP Diastolic Sitting Right Arm 74 mmHg Body Temperature 97.6 F Heart Rate 88 /min Respiratory Rate 20 /min Height 63.5 inches 5'3.50" Weight 116.00 lb BMI (Body Mass Index) 20.2 kg/m2 BSA (Body Surface Area) 1.54 m2 [place] body weight in kilograms 53 kg O2 % BldC Oximetry 98 % 11/18/2016 8:57am BP Systolic Sitting Right Arm 130 mmHg BP Diastolic Sitting Right Arm 67 mmHg Heart Rate 63 /min Respiratory Rate 12 /min Height 63.5 inches 5'3.50" Weight 120.00 lb BMI (Body Mass Index) 20.9 kg/m2 BSA (Body Surface Area) 1.57 m2 [place] body weight in kilograms 53 kg 11/07/2016 2:21pm BP Systolic Sitting Left Arm 119 mmHg BP Diastolic Sitting Left Arm 69 mmHg Body Temperature 98.1 F Heart Rate 70 /min Respiratory Rate 16 /min Height 63.5 inches 5'3.50" Weight 120.00 lb BMI (Body Mass Index) 20.9 kg/m2 BSA (Body Surface Area) 1.57 m2 [place] body weight in kilograms 53 kg O2 % BldC Oximetry 96 % 10/24/2016 12:49pm BP Systolic 125 mmHg BP Diastolic 67 mmHg Body Temperature 96.6 F Heart Rate 65 /min Respiratory Rate 14 /min Height 63.5 inches 5'3.50" Weight 120.50 lb BMI (Body Mass Index) 21.0 kg/m2 BSA (Body Surface Area) 1.57 m2 [place] body weight in kilograms 53 kg O2 % BldC Oximetry 99 % 10/04/2016 9:41am BP Systolic Sitting Left Arm 148 mmHg recheck 125/74 BP Diastolic Sitting Left Arm 77 mmHg recheck 125/74 Heart Rate 76 /min Respiratory Rate 16 /min Height 63.5 inches 5'3.50" Weight 122.00 lb BMI (Body Mass Index) 21.3 kg/m2 BSA (Body Surface Area) 1.58 m2 [place] body weight in kilograms 53 kg 05/28/2016 [...] Result H/L Range Note LDL Cholesterol 05/04/2018 [facility] Cholesterol 202 mg/dL High <200 1, 2 Profile [address] [place], [place] [id number] [phone] Triglycerides 112 mg/dL <150 3 HDL Cholesterol 62 mg/dL >40 4 LDL-Cholesterol 118 mg/dL < 100 5 Reflex add FT3? Y Reflex add FT4? Y CBC W/Automated Diff 05/04/2018 [facility] White Blood 5.9 K/uL N 3.1-10.[address] Count [place], [place] [id number] [phone] Red Blood Count 4.92 M/uL N 3.90-5.40 [...] 40.4-72.8 Lymph % 49.3 % High 20.0-42.0 [place] % 8.0 % N 4.3-13.2 Eo% 4.6 % N 0.0-6.6 Bas% 0.7 % N 0.0-1.1 Neut# 2.21 K/uL N 1.8-7.0 Lymph # 2.91 K/uL N 1.0-4.0 [place] # 0.47 K/uL N 0.3-0.9 Eos # 0.27 K/uL N 0.0-0.5 Baso # 0.04 K/uL N 0.0-0.1 Comprehensive Metabolic 05/04/2018 [facility] Glucose 91 mg/dL N 74-106 Panel [address] [place] [address] [phone] BUN 9 mg/dL N 7-18 Creatinine 0.6 [...] Reflex add FT4? Y Glycohemoglobin A1c 05/04/2018 [facility] Glycohemoglobin 5.3 % N 4.2-6.3 7 [address] (A1c) [place] [address] [phone] eAG 105 mg/dL TSH Reflex FT4 05/04/2018 [facility] Thyroid Stim 2.74 uIU/mL N 0.30-4.20 And/Or FT3 [address] [place] [address] [phone] Reflex add FT3? Y Reflex add FT4? Y Laboratory test 04/04/2018 [facility] Sedimentation Rate 10 mm/hr N 0-30 8, 9 finding [address] [place] [address] [phone] C-Reactive Protein,Quant < 2.9 mg/L <3.0 Serum [...] 1.80 1.8-7.0 count count Laboratory test 03/02/2018 [facility] Vitamin 37.7 30.0-100.0 10, finding [address] D,25-Hydroxy ng/mL 11 [place] [address] [phone] Glycohemoglobin A1c 03/02/2018 [facility] Glycohemoglobin 5.7 % N 4.2-6.[address] (A1c) [place] [address] [phone] eAG 117 mg/dL Comprehensive Metabolic 03/02/2018 [facility] Glucose 85 mg/dL N 74-[address] [place] [address] [phone] BUN 8 mg/dL N 7-18 Creatinine 0.6 [...] U/L N 45-117 CBC W/Automated Diff 03/02/2018 [facility] White Blood 5.1 K/uL N 3.1-10.[address] [place] [address] [phone] Red Blood Count 4.82 M/uL N 3.90-5.40 [...] 40.4-72.8 Lymph % 50.7 % High 20.0-42.0 [place] % 9.4 % N 4.3-13.2 Eo% 3.5 % N 0.0-6.6 Bas% 1.2 % High 0.0-1.1 Neut# 1.80 K/uL N 1.8-7.0 Lymph # 2.59 K/uL N 1.0-4.0 [place] # 0.48 K/uL N 0.3-0.9 Eos # [...] automated count (number/volume) (number/volume) CBC W/Automated 11/21/2017 [facility] White Blood Count 6.7 K/uL N 3.1-10.7 15 Diff [address] [place] [address] [phone] Red Blood Count 5.04 M/uL N 3.90-5.40 [...] 40.4-72.8 Lymph % 48.7 % High 20.0-42.0 [place] % 8.0 % N 4.3-13.2 Eo% 1.8 % N 0.0-6.6 Bas% 0.4 % N 0.0-1.1 Neut# 2.75 K/uL N 1.8-7.0 Lymph # 3.27 K/uL N 1.0-4.0 [place] # 0.54 K/uL N 0.3-0.9 Eos # 0.12 K/uL N 0.0-0.5 Baso # 0.03 K/uL N 0.0-0.1 LDL Cholesterol 11/21/2017 [facility] Cholesterol 231 mg/dL High <200 16 Profile [address] [place] [address] [phone] Triglycerides 114 mg/dL <150 17 HDL Cholesterol 71 mg/dL >40 18 LDL-Cholesterol 137 mg/dL < 100 19 Comprehensive Metabolic 11/21/2017 [facility] Glucose 98 mg/dL N 74-106 Panel [address] [place] [address] [phone] BUN 8 mg/dL N 7-18 Creatinine 0.7 [...] U/L N 45-117 Vitamin B12 And 11/21/2017 [facility] Vitamin B12 413 pg/mL N 193-986 Folate [address] [place], [place] [id number] [phone] Folic Acid 9.8 ng/mL N 3.1-17.5 Laboratory test 11/21/2017 [facility] Vitamin 14.7 Low 30.0-100.0 21 finding [address] D,25-Hydroxy ng/[place] [address] [phone] Comprehensive 10/06/2017 [facility] Glucose 97 mg/dL N 74-106 22 Metabolic Panel [address] [place] [address] [phone] BUN 5 mg/dL Low 7-18 Creatinine 0.5 [...] 60 U/L N 45-117 LDL Cholesterol 10/06/2017 [facility] Cholesterol 201 mg/dL High <200 24 Profile [address] [place] [address] [phone] Triglycerides 112 mg/dL <150 25 HDL Cholesterol 57 mg/dL >40 26 LDL-Cholesterol 122 mg/dL < 100 27 [facility] N[facility]N/CCD Import Alt SerPl-cCnc 15 12-78 [...] measurement calcium measurement (mass/volume) (mass/volume) Comprehensive 04/08/2017 [facility] Glucose 98 N 74-106 28 Metabolic Panel [address] mg/dL [place], [place] [address] [phone] BUN 7 mg/dL N 7-18 Creatinine 0.7 [...] U/L N 45-117 LDL Cholesterol Profile 04/08/2017 [facility] Cholesterol 199 mg/dL <[address] [place] [address] [phone] Triglycerides 142 mg/dL <150 31 HDL Cholesterol 63 mg/dL >40 32 LDL-Cholesterol 108 mg/dL < 100 33 CBS W/Automated Diff 04/08/2017 [facility] White Blood 7.0 K/uL N 3.1-10.[address] [place] [address] [phone] Red Blood Count 4.72 M/uL N 3.90-5.40 [...] 40.4-72.8 Lymph % 49.7 % High 20.0-42.0 [place] % 11.0 % N 4.3-13.2 Eo% 2.1 % N 0.0-6.6 Bas% 0.6 % N 0.0-1.1 Neut# 2.57 K/uL N 1.8-7.0 Lymph # 3.49 K/uL N 1.0-4.0 [place] # 0.77 K/uL N 0.3-0.9 Eos # 0.15 K/uL N 0.0-0.5 Baso # 0.04 K/uL N 0.0-0.1 Comprehensive Metabolic 09/27/2016 [facility] Glucose 85 mg/dL N 74-106 34 Panel [address] [place] [address] [phone] BUN 4 mg/dL Low 7-18 Creatinine 0.6 [...] U/L N 45-117 CBS W/Automated Diff 09/27/2016 [facility] White Blood 6.6 K/uL N 3.1-10.[address] [place] [address] [phone] Red Blood Count 4.50 M/uL N 3.90-5.40 [...] 40.4-72.8 Lymph % 55.8 % High 20.0-42.0 [place] % 11.9 % N 4.3-13.2 Eo% 2.4 % N 0.0-6.6 Bas% 0.9 % N 0.0-1.1 Neut# 1.91 K/uL N 1.8-7.0 Lymph # 3.67 K/uL N 1.0-4.0 [place] # 0.78 K/uL N 0.3-0.9 Eos # 0.16 K/uL N 0.0-0.5 Baso # 0.06 K/uL N 0.0-0.1 LDL Cholesterol 09/27/2016 [facility] Cholesterol 223 mg/dL High <200 37 Profile [address] [place] [address] [phone] Triglycerides 133 mg/dL <150 38 HDL Cholesterol 55 mg/dL >40 39 LDL-Cholesterol 141 mg/dL < 100 40 Comprehensive Metabolic 02/14/2016 [facility] Glucose 79 mg/dL N 74-106 41 Panel [address] [place] [address] [phone] BUN 7 mg/dL N 7-18 Creatinine 0.7 [...] U/L N 45-117 CBC W/Automated Diff 02/14/2016 [facility] White Blood 6.6 K/uL N 3.1-10.7 [address] [place] [address] [phone] Red Blood Count 4.81 M/uL N 3.90-5.40 [...] 40.4-72.8 Lymph % 44.0 % N 17.0-46.1 [place] % 9.2 % N 4.3-13.2 Eo% 1.7 % N 0.0-6.6 Bas% 0.9 % N 0.0-1.1 Neut# 2.92 K/uL N 1.8-7.0 Lymph # 2.91 K/uL N 1.8-7.0 [place] # 0.61 K/uL N 0.3-0.9 Eos # 0.11 K/uL N 0.0-0.5 Baso # 0.06 K/uL N 0.0-0.1 LDL Cholesterol 02/14/2016 [facility] Cholesterol 216 mg/dL High <200 43 Profile [address] [place] [address] [phone] Triglycerides 128 mg/dL N <150 44 HDL [...] Direct Bilirubin 0.1 0.0-0.2 Liver Function 08/22/2015 [facility] Total Protein 8.2 g/dL 6.4-8.2 Tests [address] [place] [address] [phone] Albumin 3.4 g/dL 3.4-5.0 Globulin 4.8 g/dL High 1.9-4.3 Alb/Glob 0.7 ratio Bilirubin,Total 0.6 mg/dL 0.2-1.0 Bilirubin,Direct 0.1 mg/dL 0.0-0.2 Bilirubin,Indirect 0.5 mg/dL 0.0-0.9 Sgot/Ast 17 U/L 15-37 SGPT/Alt 14 U/L 12-78 Alkaline Phosphatase 70 U/L 45-117 HCV Rna By PCR 08/22/2015 [facility] Hepatitis C See Note IU/mL . 47 (Quant) [address] [place] [address] [phone] Test Info See Note 48 CBC 08/22/2015 [facility] White Blood Count 8.0 K/uL 3.1-10.7 [address] [place] [address] [phone] Red Blood Count 4.58 M/uL 3.90-5.40 Hemoglobin [...] Note 49 Comments Comments Laboratory test 05/19/2015 [facility] Gastric See Note 50 finding [address] Biopsy/[place] [address] [phone] Laboratory test 03/22/2015 N2N/CCD Import Urine Amphetamines [...] Alanine Aminotransferase 19 0- 40 finding (Alt/SGPT) Sixhi-7-Nafpcsdbxwror 420 High 110-276 Apolipoprotein A-1 150 116-209 Gamma Glutamyl Transpeptidase 21 0-60 HCV Liver Fibrosis Comment See Note 51 HCV Liver Fibrosis Limitations See Note 52 Haptoglobin 135 34-200 Hepatitis A Antibody Total Positive High Negative Hepatitis C Genotype 1a . Hepatitis C Genotype Comment See Note 53 Hepatitis C Rna (PCR) IUs/ml 239721 . Hepatitis C Rna (PCR) log IUs/ml 5.751 . Liver Fibrosis Score 0.43 High 0.00-0.21 Liver Necroinflammatory Score See Note 54 N/A See Note 55 Reference Lab Test Comments See Note 56 Total Bilirubin 0.4 0.0-1.2 Tumor Marker Alpha Fetoprotein 1.6 0.0-8.3 LDL Cholesterol 11/07/2014 [facility] Cholesterol 208 mg/dL < 200 57 Profile [address] [place] [address] [phone] Triglycerides 96 mg/dL < 150 58 HDL Cholesterol 61 mg/dL > 40 59 LDL-Cholesterol 128 mg/dL < 100 60 Laboratory test 11/07/2014 [facility] Thyroid Stim 2.78 uIU/mL 0.36-3.[address] [place] [address] [phone] Vitamin D,25-Hydroxy 14.4 ng/mL Low 30.0-100.0 61 HCV Rna By PCR (Quant) 11/07/2014 [facility] Hepatitis C 487161 IU/mL . [address] [place] [address] [phone] HCV log10 5.659 . 62 Test Info See Note 63 Glycohemoglobin A1c 11/07/2014 [facility] Glycohemoglobin 5.1 % 4.2-6.[address] (A1c) [place] [address] [phone] eAG 100 mg/dL Comprehensive Metabolic 11/07/2014 [facility] Glucose 92 mg/dL 74-[address] [place] [address] [phone] BUN 6 mg/dL Low 7-18 Creatinine 0.7 [...] 73 U/L 45-117 CBC W/Automated Diff 11/07/2014 [facility] White Blood 6.5 K/uL 3.1-10.[address] [place] [address] [phone] Red Blood Count 5.05 M/uL 3.90-5.40 Hemoglobin [...] 40.4-72.8 Lymph % 48.6 % High 17.0-46.1 [place] % 9.7 % 4.3-13.2 Eo% 2.6 % 0.0-6.6 Bas% 1.1 % 0.0-1.1 Neut# 2.48 K/uL 1.0-7.0 Lymph # 3.17 K/uL 1.8-7.0 [place] # 0.63 K/uL 0.3-0.9 Eos # 0.17 [...] for more aggressive treatment of glycemia. The [place] [employer] recommends that a primary goal of therapy should be a HbA1c of <7% and that physicians should re-evaluate the treatment regimen in patients with HbA1c values consistently >8%. 8 M54.5 9 Method: Sediplast Modified Westergren 10 E78.5 11 Vitamin D deficiency has been defined by the [employer] of [employer] and an Endocrine Society practice guideline as a level of serum 25-OH vitamin D less than 20 ng/mL (1,2). The Endocrine Society went on to further define vitamin D insufficiency as a level between 21 and 29 ng/mL (2). 1. IOM ([employer]). 2010. Dietary reference intakes for calcium and D. [place]: The National Academies Press. 2. Rossy MF, May NC, Luana MELCHOR, et al. Evaluation, treatment, and prevention of vitamin D deficiency: an Endocrine Society clinical practice guideline. JCEM. 2010; 96(7):1911-30. Performed at: RN - [facility] [address] [id number] [employer] Supervisor: Miriam Leigh MD, Phone: [phone] 12 Elevated levels of HbA1c suggest the need for more aggressive treatment of glycemia. The [place] [employer] recommends that a primary goal [...] D deficiency has been defined by the [employer] and an Endocrine Society practice guideline as a level of serum 25-OH vitamin D less than 20 ng/mL (1,2). The Endocrine Society went on to further define vitamin D insufficiency as a level between 21 and 29 ng/mL (2). 1. IOM ([employer]). 2010. Dietary reference intakes for calcium and D. [place]: The National Academies Press. 2. Rossy MF, May YA, Luana MELCHOR, et al. Evaluation, treatment, and prevention of vitamin D deficiency: an Endocrine Society clinical practice guideline. JCEM. 2010; 96(7):1911-30. Performed at: - [facility] [address] [id number] [employer] Supervisor: Miriam Leigh MD, Phone: [phone] 22 e78.5 23 Note: Persistent reduction for [...] IU/mL to 100 million IU/mL. Performed at: [facility] [id number] [employer] Supervisor: Miriam Leigh MD, Phone: [phone] 49 The quantitative range of this assay is 15 Iu/mL to 100 million Iu/mL. Performed at: - [facility] [id number] [employer] Supervisor: Miriam Leigh MD, Phone: [phone] 50 OPERATION/PROCEDURE Colonoscopy, upper endoscopy. DIAGNOSIS: PART [...] cm. in aggregate. Submitted entirely, one cassette. /clf PRE OPERATIVE DIAGNOSIS Screening, epigastric pain. REVIEW CODE CODE: I Signed Electronically signed Lani SHERMAN MD [id number] 51 This test was developed and its performance characteristics determined by [facility]. It has not been cleared or approved by the Food and Drug Administration. The Fda has determined that such clearance or approval is not necessary. For questions regarding this report please contact customer service -[phone]. 52 The negative predictive value of a [...] developed and its performance characteristics determined by [facility]. It has not been cleared or approved [...] detected, less than 15 Iu/mL". Performed at: [facility] [address] [place] [id number] [employer] Supervisor: Saurabh Mcneill MD, Phone: [phone] Performed at: [address] [id number] [employer] Supervisor: Miriam Leigh MD, Phone: [phone] Reference Guidelines*: Desirable: ........... < 200 [...] D deficiency has been defined by the [employer] of Medicine and an Endocrine Society practice guideline as a level of serum 25-OH vitamin D less than 20 ng/mL (1,2). The Endocrine Society went on to further define vitamin D insufficiency as a level between 21 and 29 ng/mL (2). 1. IOM ([employer] of [employer]). 2010. Dietary reference intakes for calcium and D. [place]: The National Academies Press. 2. Rossy MF, May YA, Luana MELCHOR, et al. Evaluation, treatment, and prevention of vitamin D deficiency: an Endocrine Society clinical practice guideline. JCEM. 2010; 96(7):1911-30. Performed at: [facility] - [address] [id number] [employer] Supervisor: Miriam Leigh MD, Phone: [phone] INFCE Result Units: log10 IU/mL 63 [...] detected, less than 15 IU/mL". Performed at: [facility] [id number] [employer] Supervisor: Miriam Leigh MD, Phone: [phone] Elevated levels of HbA1c suggest the need for more aggressive treatment of glycemia. The [place] [employer] recommends that a primary goal [...] www.kdoqi.org. Procedures Date Code Description Status 05/04/2018 20952528 Mammogram Completed 04/07/2018 50178 Radiology, Forearm: Two Views Completed 04/07/2018 54429 Radiology, Forearm: Two Views Completed 04/07/2018 53841 Radiology, Elbow: Two Views Completed 04/07/2018 35186 Radiology, Elbow: Two Views Completed 04/07/2018 62821 Asp./Injection major joint Completed 03/19/2018 51405 Echocardiogram Complete Completed 03/09/2018 85920 EKG-Tracing And Report Completed 02/24/2018 538350068 Bone Mineral Density Test Completed 11/07/201746916 Asp./Injection major joint Completed 10/31/2017 65867 Brief Emotional/Behav Assessment W/ Scoring Doc Per Completed Standard Inst 10/13/2017 34586 EKG-Tracing And Report Completed 06/09/2017 94558 Nerve Conduction 3-4 Studies Completed 06/09/2017 24316 Needle Electromyography Complete, Five Or More Muscles Completed Studied 2017 95988 Radiology, Shoulder: Two Views (Sso) Completed 2017 64351 Asp./Injection major joint Completed 10/24/2016 59140 Remove Impact Cerumen Irrigati Completed 10/24/2016 24662 Remove Impacted Cerumen Completed 05/28/2016 36768 Pressurized/Non-Pressurized Inhalation Treatment,Acute Completed Obstructio 05/22/2016 52322 Pressurized/Non-Pressurized Inhalation Treatment,Acute Completed Obstructio 12/07/2015 63267 Pressurized/Non-Pressurized Inhalation Treatment,Acute Completed Obstructio 07/12/2015 16285 EKG-Tracing And Report Completed 04/25/2015 49374664 Colonoscopy Completed 11/29/2014 98524 Radiology, Hand: Minimum Three Views Completed 11/29/2014 64053 Radiology, Hand: Minimum Three Views Completed 11/29/2014 78461 Radiology, Wrist Complete Completed 11/29/2014 93166 Radiology, Wrist Complete Completed 11/16/2014 24944124 Mammogram Completed Encounters Type Date Location Provider Dx Diagnosis Office Visit 05/05/2018 Orthopaedic Office Wendy Hung, S46.091S Inj musc/tend 2:15p the rotator cuff of right shoulder, sequela M75.41 Impingement syndrome of right shoulder M19.011 Primary osteoarthritis, right shoulder F17.210 Nicotine dependence, cigarettes, uncomplicated Office Visit 05/05/2018 Viktor Hung M79.632 Pain in left 2:00p Office MD Wendy forearm Office Visit 04/21/2018 Viktor Hung M79.632 Pain in left 2:15p Office MD Wendy forearm Office Visit 04/08/2018 [facility], M54.2 Cervicalgia 9:30a Office Jessica MS, REFLESHER-C, CNM M25.511 Pain in right shoulder M54.5 Low [...] Office Visit 03/23/2018 10:30a Primary Care Jessica Duncan, M54.2 Cervicalgia Office MS, REFLESHER-C, CNM M25.519 Pain in unspecified shoulder F41.1 Generalized anxiety disorder I49.9 Cardiac arrhythmia, unspecified F17.210 Nicotine dependence, cigarettes, uncomplicated M54.5 Low back pain Office Visit 03/09/2018 1:00p Primary Care Jessica Duncan, F41.1 Generalized Office MS, REFLESHER-C, CNM anxiety disorder E78.5 Hyperlipidemia, unspecified N95.1 Menopausal and female climacteric states E55.9 Vitamin D deficiency, unspecified I49.9 Cardiac arrhythmia, unspecified F17.210 Nicotine dependence, cigarettes, uncomplicated Z12.31 Encntr screen mammogram for malignant neoplasm of breast Office Visit 02/10/2018 2:00p Viktor Hung MSyeda.41 Impingement Office MD Wendy syndrome of right shoulder M19.011 Primary osteoarthritis, right shoulder S46.091S Inj musc/tend the rotator cuff of right shoulder, sequela F17.210 Nicotine dependence, cigarettes, uncomplicated M75.121 Complete rotatr-cuff tear/ruptr of r shoulder, not trauma Office Visit 12/08/2017 2:45p Primary Care Jessica Duncan, Z71.6 Tobacco abuse Office MS, REFLESHER-C, CNM counseling F41.1 Generalized anxiety disorder M75.41 Impingement syndrome of right shoulder M19.011 Primary osteoarthritis, right shoulder S46.091S Inj musc/tend the rotator cuff of right shoulder, sequela E78.5 Hyperlipidemia, unspecified E55.9 Vitamin D deficiency, unspecified Office Visit 11/27/2017 11:00a Sarbjit Aviles75.41 Impingement Office MD Wendy syndrome of right [...] Major depressive Office Jessica, disorder, single MS, REFLESHER-C, episode, CNM moderate M25.511 Pain in right shoulder Z71.6 Tobacco abuse counseling Office Visit 10/13/2017 Primary Care [place], E78.5 Hyperlipidemia, 9:30a Office Jessica, MS, unspecified REFLESHER-C, CNM F41.1 Generalized anxiety disorder M79.7 Fibromyalgia R07.9 Chest pain, unspecified Z71.6 Tobacco abuse counseling Z72.6 Gambling and betting Office Visit 05/22/2017 9:15a Orthopaedic Office Giacomo G56.20 Lesion of ulnar aMki Willett nerve, unspecified upper limb Office Visit 05/12/2017 2:40p Primary Care Antoni R21 Rash and other Office MD Melba nonspecific skin eruption Office Visit 2017 9:15a Orthopaedic Office Giacomo M25.511 Pain in right Maki Willett shoulder M75.01 Adhesive capsulitis of right shoulder Office Visit 04/14/2017 9:20a Primary Care Melba Corrales, M25.511 Pain in [...] Care Melba Corrales, J01.90 Acute sinusitis, Office unspecified M25.511 Pain in right shoulder Office Visit 10/24/2016 1:00p Primary Care Melba Corrales, H61.23 Impacted cerumen, Office bilateral Office Visit 10/04/2016 9:40a Primary Care Melba Corrales, B18.2 Chronic viral Office hepatitis C M79.7 Fibromyalgia Z23 Encounter for immunization E78.5 Hyperlipidemia, unspecified Office Visit 05/28/2016 9:40a Primary Care Melba Corrales [id number] Acute bronchitis Office MD due to other specified organisms B18.2 Chronic viral hepatitis C M79.7 Fibromyalgia Office Visit 05/22/2016 11:00a Primary Care Melba Corrales [id number] Acute bronchitis Office MD due to other specified organisms Office Visit 01/22/2016 10:00a Primary Care Melba Corrales B18.2 Chronic viral Office hepatitis C M79.7 Fibromyalgia F17.210 Nicotine dependence, cigarettes, uncomplicated Z23 Encounter for immunization Z71.6 Tobacco abuse counseling Office Visit 12/07/2015 1:00p Primary Care Melba Corrales J20.8 Acute bronchitis Office MD due to other specified organisms M62.830 Muscle spasm of back Office Visit 07/12/2015 10:40a Primary Care Melba Corrales B18.2 Chronic viral Office hepatitis C M54.31 Sciatica, right side B37.2 Candidiasis of skin and nail M79.7 Fibromyalgia Office Visit 05/03/2015 9:40a Primary Care Melba Corrales B18.2 Chronic viral Office hepatitis C F17.210 Nicotine dependence, cigarettes, uncomplicated M54.31 Sciatica, right side B37.2 Candidiasis of skin and nail Z71.6 Tobacco abuse counseling Office Visit 02/03/2015 9:20a Primary Care Melba Corrales B18.2 Chronic viral Office hepatitis C G43.019 Migraine w/o aura, intractable, without status migrainosus M25.532 Pain in left wrist M79.7 Fibromyalgia F17.210 Nicotine dependence, cigarettes, uncomplicated Z71.6 Tobacco abuse counseling Z23 Encounter for immunization Office Visit 12/08/2014 1:30p Primary Care Angela Hsieh B18.2 Chronic viral Office Maki hepatitis C B18.2 Chronic viral hepatitis C G43.019 Migraine w/o aura, intractable, without status migrainosus G43.019 Migraine w/o aura, intractable, without status migrainosus F17.210 Nicotine dependence, cigarettes, uncomplicated F17.210 Nicotine dependence, cigarettes, uncomplicated Office Visit 11/29/2014 8:45a Orthopaedic Office Katherine Irwin M79.[address] [facility] [address] 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
[2018-06-23 14:39] VITALS: BP 129/64
[2018-06-23] MEDS ORDERED: Meclizine TAB* 12.5 MG PO ONE (15:07)
--- NOTE | 2018-06-23 15:13 | ED ---
Dizziness - HPI Summary HPI Summary: 63 yr old female with the complaint of dizziness. Onset one week ago. Her symptoms are like the room spins or things move with position change. She notices this with going from sitting to laying supine most and if she sits down and look up while she does this or if she turns her head side to side. She has no change in vision, hearing, speech, swallowing. No focal weakness no numbness no headache. From time to time for many months she gets occasional skip beat in her chest. no CP no SOB. Her symptoms have not changes her activities of daily living. She feels totally comfortable driving a car, and she feels fine when she is walking; it is just changing positions suddenly that causes this. She has had build up of wax in the ears in the past. She denies ear pain. - History Of Current Complaint Chief Complaint: UCDizziness Stated Complaint: DIZZY Time Seen by Provider: 06/23/18 14:41 - Allergies/Home Medications Allergies/Adverse Reactions: Allergies Allergy/AdvReac Type Severity Reaction Status Date / Time No Known Allergies Allergy Verified 06/23/18 14:20 Home Medications: Home Medications Cyclobenzaprine TAB* [Flexeril 10 MG TAB*] 10 mg PO TID PRN 06/23/18 [History Confirmed 06/23/18] Cyclosporine 0.05% OPHTH (NF) [Restasis 0.05% OPHTH] 1 drop BOTH EYES DAILY [History Confirmed 06/23/18] Gabapentin CAP(*) [Neurontin 100 mg CAP(*)] 200 mg PO TID 06/23/18 [History Confirmed 06/23/18] Vitamins, For Her Hair 06/23/18 [History] PMH/Surg Hx/FS Hx/Imm Hx - Surgical History Surgery Procedure, Year, and Place: Tubal ligation,hernia repair.Right eye surgery. Infectious Disease History: No Infectious Disease History: Reports: Hx Hepatitis - HEP C Denies: Traveled Outside the [place] in Last 30 Days - Family History Known Family History: Positive: Cardiac Disease, Diabetes - Social History Alcohol Use: None Alcohol Amount: SOBER 15 YEARS Substance Use Type: Reports: Marijuana Substance Use Comment - Amount & Last Used: OCCASIONALLY-RECREATIONAL Smoking Status (MU): Light Every Day Tobacco Smoker Type: Cigarettes Amount Used/How Often: 5 CIGS A DAY Review of Systems Constitutional: Negative Negative: Ear Ache, Nasal Discharge Neurological: Other - room spinning Negative: Headache All Other Systems Reviewed And Are Negative: Yes Physical Exam - Summary Physical Exam Summary: I am able to reproduce her symptoms with having her lay back suddenly onto the bed, and by changing position of her head. She has no nystagmus. her symptoms are very brief and self limited. Triage Information Reviewed: Yes Vital Signs On Initial Exam: Initial Vitals Temp Pulse Resp BP Pulse Ox 98.5 F 82 16 129/64 100 06/23/18 14:25 06/23/18 14:25 06/23/18 14:25 06/23/18 14:25 06/23/18 14:25 Vital Signs Reviewed: Yes Appearance: Positive: Well-Appearing, No Pain Distress Skin: Positive: Warm, Skin Color Reflects Adequate Perfusion Head/Face: Positive: Normal Head/Face Inspection Eyes: Positive: EOMI ENT: Positive: Normal ENT inspection, Pharynx normal, TMs normal. Negative: Nasal congestion Neck: Positive: Supple, Nontender Respiratory/Lung Sounds: Positive: Clear to Auscultation, Breath Sounds Present Cardiovascular: Positive: RRR. Negative: Murmur Abdomen Description: Positive: Nontender. Negative: Distended Musculoskeletal: Positive: Strength/ROM Intact Neurological: Positive: Sensory/Motor Intact, Alert, Oriented to Person Place, Time, CN Intact II-III, Normal Gait, Finger to Nose, Speech Normal Psychiatric: Positive: Normal Diagnostics - Vital Signs Vital Signs Temp Pulse Resp BP Pulse Ox 06/23/18 14:25 98.5 F 82 16 129/64 100 - Laboratory Lab Statement: Any lab studies that have been ordered have been reviewed, and results considered in the medical decision making process. Dizzy Course/Dx - Course Course Of Treatment: 63 yr old with positional vertigo. EKG ok. DChome on meclizine. Any worsening symptoms she can go to the ER. - Diagnoses Provider Diagnoses: Positional vertigo Discharge - Sign-Out/Discharge Documenting (check all that apply): Patient Departure All imaging exams completed and their final reports reviewed: No Studies - Discharge Plan Condition: Good Disposition: HOME Prescriptions: Meclizine TAB* [Antivert 12.5 TAB*] 12.5 mg PO TID #10 tab Patient Education Materials: Vertigo (ED) Referrals: Melba Corrales MD [Primary Care Provider] - 3 Days - Billing Disposition and Condition Condition: GOOD Disposition: Home
== END 2018-06-23 15:30 | disposition home or self-care (01) ==
LOC: UCCORT 14:13
DX: H81.10 Benign paroxysmal vertigo, unspecified ear (principal); F17.210 Nicotine dependence, cigarettes, uncomplicated
CPT/HCPCS: 93005; 99212; A9270-GY; G0463